=== PATIENT | female | born 1960 | race Caucasian/White ===

== ENCOUNTER 2023-08-18 20:00 | Emergency (ER) | payer OTHER, SELFPAY ==
[2023-08-18 20:07] VITALS: BP 155/98
--- NOTE | 2023-08-18 21:23 | ED.MUSCINJ ---
HPI-Injury
General
Chief Complaint: Musculo-Skeletal Complaint
Source: patient
Exam Limitations: none
Time Seen by Provider: 08/18/23 21:19
Nursing documentation reviewed up to this point in time: agreed with
Travel History
Have you had any contact with someone who has COVID-19?: No
Do you have any symptoms of coronavirus? Fever > 100 degrees, chills, cough, shortness of breath, sore throat, loss of taste or smell, muscle aches, or headache?: No
History of Present Illness-Injury
Initial Injury comments:
62-year-old female with history of lung cancer status post radiation and chemotherapy, now in remission States she slipped w/in past few hours at her daughter's house and injured her right wrist. She denies hitting her head or any other injury.
Past History
Past History
ED Past Medical History: Cancer (Lung cancer)
ED Past Surgical History: None
Social History
Tobacco: Non-smoker
Personal:
Living: with family
Employment: Employed
Review of Systems
Review of Systems
Allergies reviewed?: Yes
All Other Systems: ROS reviewed and negative except as documented in HPI and ROS
Musculoskeletal: Reports other (Right wrist pain and swelling)
Musculoskeletal Injury Exam
Musculoskeletal Injury Exam
Right Wrist:
Pain with Movement?: Moderate
Tender to palpation?: Moderate
Soft tissue swelling?: Mild
External deformity and angulation?: None
Joint instability?: No
Malalignment/deformity?: No
Range of motion: Limited
Distal skin color and temperature: normal-warm & good color
Capillary Refill: normal
Normal distal neurovascular exam?: Yes
Phy Exam
Physical Exam
Physical Exam:
PHYSICAL EXAMINATION:
General: no apparent distress, not acutely ill
Neuro: alert and oriented.
Psychiatric: well kept. interactive and cooperative
Musculoskeletal: Moves with ease
Skin: Warm, pink.
Injury Course
Orders/Labs/Results
Orders:
Orders
08/18/23 20:09
Wrist, Right 3 Views [CR Wrist - Right Min 3 Views] Urgent
Comment:
Reason For Exam: injury and pain
08/18/23 21:25
Volar Right-Treatment ONCE
Procedures
Splint Check
Splint checked by provider?: Yes
Circulation/Movement/Sensation post splint application: brisk cap refill and full sensation
MDM/Problems Addressed
Differential Diagnosis Includes:
Fracture, sprain
MDM/Problems Addressed:
62-year-old female with history of lung cancer status post radiation and chemotherapy, now in remission States she slipped w/in past few hours at her daughter's house and injured her right wrist. She denies hitting her head or any other injury.
X-ray right wrist initially read by this examiner, there is a mildly angulated distal radial fracture.
Volar splint applied
Referred to orthopedics
*Critical Care Note
Total Time (30-74mins, 75-104mins- exclusive of procedures): Not Applicable
ED Attending Note
-
Portions of this chart may have been created with voice recognition software.� Occasional wrong word or��sound alike� substitutions may have occurred due to the inherent limitations of voice recognition software.
Discharge Plan
Departure
Patient Disposition: Home (Routine Discharge)
Date of Disposition: 08/18/23
Time of Disposition: 21:26
Patient with high blood pressure during this ER visit?: Yes
Condition: Good
Discharge Problem:
Fall due to ice or snow, Fracture of right wrist
Instructions: Wrist Fracture (DC), Using Cold for Pain
Prescriptions:
No Action
[id number] serr [Osteo Bi-Flex (5-Loxin)] 1 EACH tablet
1 ea PO DAILY
Referrals:
Toñito Ferguson MD [Active] - Next open appointment
Activity Restrictions/Additional Instructions:
As we discussed, keep the splint on until you see the orthopedic doctor.
Call tomorrow morning for appointment.
Tylenol or ibuprofen as needed for pain.
Interventions
Interventions:
*Risk Screen - Suicide Last Done: 08/18/23 20:07
*General Assessment Last Done: 08/18/23 21:48
*Neglect/Abuse Screening Last Done: 08/18/23 20:07
*Nursing Disposition Last Done: 08/18/23 21:51
ED-Musculoskeletal Assessment Last Done: 08/18/23 21:48
Discharge Date and Time
Discharge Date/Time: 08/18/23 21:52
[2023-08-18 21:48] VITALS: BP 136/89
[2023-08-18 21:51] VITALS: BP 136/89
== END 2023-08-18 21:52 | disposition home or self-care (01) ==
LOC: EMR 20:00
PROVIDERS: EMERGENCY PHYSICIAN Emergency Medicine
DX: S52.571A Other intraarticular fracture of lower end of right radius, initial encounter for closed fracture (principal); W00.0XXA Fall on same level due to ice and snow, initial encounter; Z92.21 Personal history of antineoplastic chemotherapy; Z92.3 Personal history of irradiation
CPT/HCPCS: 99283; 73110

== ENCOUNTER → 2023-10-01 14:28 | Outpatient (REF) | payer OTHER, SELFPAY | LOC: HWRAD 14:28 | PROVIDERS: ATTENDING PHYSICIAN Physician Assistant; FAMILY PHYSICIAN Physician Assistant; REFERRING PHYSICIAN Specialist | DX: C34.90 Malignant neoplasm of unspecified part of unspecified bronchus or lung (principal) | CPT/HCPCS: 71250 ==

== ENCOUNTER → 2023-11-27 12:42 | Outpatient (REF) | payer OTHER, SELFPAY | LOC: HWWDC 12:42 | PROVIDERS: ATTENDING PHYSICIAN Physician Assistant | DX: Z12.31 Encounter for screening mammogram for malignant neoplasm of breast (principal) | CPT/HCPCS: 77063; 77067 ==

== ENCOUNTER 2024-07-25 13:44 | Inpatient (IN) | payer OTHER, SELFPAY ==
[2024-07-25] VITALS (24 sets, daily range): BP systolic 82–130; BP diastolic 55–98
[2024-07-25 11:37] LABS: Mean Corp Hgb Conc. 33.3 g/dL (33.0-37.0); Mean Corpuscular Hgb 28.6 pg (27.0-31.0); Mean Corpuscular Volume 85.7 fL (81.0-99.0); Red Blood Cell Count 1.75 10^6/uL (4.20-5.40); Red Cell Dist. Width 16.7 % (11.5-14.5); White Blood Cell Count 4.2 10^3/uL (4.8-10.8)
[2024-07-25 11:40] LABS: ALT (SGPT) 274 U/L (0-35); AST (SGOT) 216 U/L (14-36); Albumin 3.5 g/dl (3.5-5.0); Alkaline Phosphatase 377 U/L (38-126); Blood Urea Nitrogen 31 mg/dl (7-17); Carbon Dioxide 26 mmol/L (22-30); Chloride 101 mmol/L (98-107); Glucose 127 mg/dl (70-99); Lipase 256 U/L (23-300); Potassium 3.9 mmol/L (3.5-5.1); Sodium 134 mmol/L (135-145); Total Bilirubin 1.6 mg/dl (0.2-1.3); Total Protein 6.2 g/dl (6.3-8.2); eGFR > 60.00
[2024-07-25 12:05] LABS: % Immature Granulocytes 0.9 % (0-0.5); % Lymphocytes 10.8 % (20.5-51.1); % Monocytes 16.5 % (1.7-9.3); % Neutrophils 71.8 % (42.2-75.2); Absolute Lymphocytes 0.5 10^3/uL (1.2-3.4); Absolute Monocytes 0.7 10^3/uL (0.1-0.6); Nucleated Red Blood Cells % 0 %
[2024-07-25 12:06] LABS: Platelet Count 10 10^3/uL (130-400)
--- NOTE | 2024-07-25 12:27 | ED.GENMED ---
History of Present Illness
General
Chief Complaint: Weakness
Source: patient
Time Seen by Provider: 07/25/24 11:55
History of Present Illness
History of Present Illness:
63-year-old female presents to the emergency room complaining of being extremely weak. Patient has a history of lung cancer. She had lung cancer in the right lung which was treated with radiation chemo followed by immunotherapy for 1 year. Right
sided lung cancer seems to be 'cured'. However she developed a separate cancer in the left lung. She did have a mass to her adrenal gland. She received radiation and chemo for this lesion. She is now taking Tagrisso 80 mg. She started this
medication 1 month ago. Patient states she had 'no problems' with chemo. She has never had a blood transfusion. She denies any hematochezia or melena. She denies vomiting any blood or coffee-ground material. Patient has noted some bruising and
in fact had some bruising about the eyes bilaterally which occurred about a week ago or so.
Past History
Past History
ED Past Medical History: Cancer (Lung cancer)
ED Past Surgical History: None
Social History
Tobacco: Non-smoker
Personal:
Living: with family
Employment: Employed
Phy Exam
Physical Exam
Physical Exam:
General: Awake, Alert, Oriented X3. No acute distress, cachectic and chronically ill-appearing.
Vitals: unremarkable
Head: Atraumatic
Eyes: Pupils equal, EOMI
Throat: Airway intact, no exudates
Neck: Trachea midline
Lungs: Clear and equal b/l
Heart: Regular rate, no murmurs
Abd: Soft, Nontender, No pulsatile mass
Rectal: No stool in the rectum.
Neuro: Nonfocal
Skin: Warm, dry, no rash
Extremities: pulses equal b/l, no edema
Course
Orders/Labs/Results
Orders:
Orders
07/25/24 11:19
EKG [Electrocardiogram (*1)] Urgent
Reason for Study: Tachycardia
EKG- Treatment ONCE
07/25/24 11:22
Complete Blood Count/With Diff Urgent
Comprehensive Metabolic Panel Urgent
Lipase Urgent
07/25/24 12:25
Blood Bank Products [* Blood Bank Products] Urgent
Blood Bank Products: *Packed RBC Leuko(PRBC's)
Quantity: 2
Transfuse Today: Yes
Reason: Anemia
07/25/24 12:26
Blood Bank Products [* Blood Bank Products] Urgent
Blood Bank Products: *Plt Single Donor Leuko
Quantity: 1
Transfuse Today: Yes
Reason: Thrombocytopenia
07/25/24 12:34
Type+Screen Urgent
07/25/24 12:47
ABO2 Urgent
BBK Wristband Number:
Associate notified that ABO2 has been ordered: [id number]
Date: 07/25/24
Time: 12:41
Environmental Monitoring Specialist ID: [id number]
07/25/24 13:27
Admit/Transfer Patient As Directed
Co-Sign Provider:
Level of Care: Inpatient admission
Assign to:: IMU- Intermediate Care
Physician / Group: annalee del cid
Diagnosis: sym anemia, thrombocytopenia, acute transaminitis, NSC on immuno
Reason for Hospitalization: sym anemia, thrombocytopenia, acute transaminitis, NSC on immuno
Expected length of stay greater than two midnights?: Yes
ELOS- Estimated Length of Stay in days: 5
I certify the patient meets the requirements for IP care: Yes
Code Status As Directed
Resuscitation Status: Do not resuscitate
Reached after discussion with pt or family/Healthcare POA: Yes
Based on pt advanced directive or healthcare POA form: Yes
Decision communicated with: Per patient with daughter Sharon present at bedside
HEMATOLOGY CONSULT Routine
Consulting Provider: Jovon Yañez
Was physician already notified: Yes
Reason for consult: Anemia, thrombocytopenia secondary Tagrisso
DNR Bracelet Application ONCE
07/25/24 13:30
PRN Pain Medication Management As Directed
May give lesser potent ordered pain med per pt: Yes
preference::
Protocol:: Medication orders for pain may be administered in a
manner that supports deferring to patient preference
when the pt is:
- Requesting an ordered lesser potent pain medication.
Least to most potent pain medications are defined
as: acetaminophen < NSAID < tramadol < opioids
(morphine, oxycodone, hydromorphone).
- Requesting a lesser dose of the same medication IF
ORDERED.
- Requesting a less intrusive route of administration
if both routes are prescribed by the provider (PO <
IV).
Abnormal Lab Results
07/25/24 07/25/24
11:22 12:34
WBC 4.2 L 10^3/uL
(4.8-10.8)
RBC 1.75 L 10^6/uL
(4.20-5.40)
Hgb 5.0 L* g/dL
(12.0-16.0)
Hct 15.0 L* %
(37.0-47.0)
RDW 16.7 H %
(11.5-14.5)
Plt Count 10 L* 10^3/uL
(130-400)
Absolute Lymphs (auto) 0.5 L 10^3/uL
(1.2-3.4)
Absolute Monos (auto) 0.7 H 10^3/uL
(0.1-0.6)
Immature Gran % 0.9 H %
(0-0.5)
Lymphocytes % 10.8 L %
(20.5-51.1)
Monocytes % 16.5 H %
(1.7-9.3)
Sodium 134 L mmol/L
(135-145)
BUN 31 H mg/dl
(7-17)
Glucose 127 H mg/dl
(70-99)
Total Bilirubin 1.6 H mg/dl
(0.2-1.3)
AST 216 H U/L
(14-36)
ALT 274 H U/L
(0-35)
Alkaline Phosphatase 377 H U/L
(38-126)
Total Protein 6.2 L g/dl
(6.3-8.2)
Crossmatch IS Only See Detail
07/25/24 11:22
07/25/24 11:22
Vital Signs
Initial and Last Documented VS:
Initial Vital Signs
Temp Pulse Resp BP Pulse Ox
98.2 F 114 18 104/71 100
07/25/24 11:12 07/25/24 11:12 07/25/24 11:12 07/25/24 11:12 07/25/24 11:12
Last Documented Vital Signs
Temp Pulse Resp BP Pulse Ox
98.3 F 99 18 112/82 98
07/25/24 14:11 07/25/24 14:11 07/25/24 14:11 07/25/24 14:11 07/25/24 14:11
MDM/Problems Addressed
Differential Diagnosis Includes:
Anemia from blood loss, anemia from iron deficiency, anemia from bone marrow suppression, thrombocytopenia from bone marrow suppression, aplastic anemia
MDM/Problems Addressed:
Patient presents with profound weakness shortness of breath with exertion. She is noted to have significant anemia on testing. Will transfuse 2 units of packed red blood cells. Patient also has significant thrombocytopenia. She has periorbital
bruising bilaterally as well as some skin bruising. It does not appear that she has any active bleeding through the GI tract. No large hematomas. Discussed patient's presentation with Dr. Yañez who is on-call for hematology/oncology. He
recommends 2 units of packed red blood cells and 1 unit of platelets. Discontinue medication.
Chronic conditions affecting care: Cancer (Lung cancer)
*Pulse Oximetry
Patient hypoxic: no
*EKG
Interpreted by ED Provider?: Yes
Interpretation: abnormal
Heart Rate: 102
Rate: tachycardiac
Rhythm: sinus tachycardia
Taberg: normal axis
Interval: normal interval
QRS Pattern: normal QRS
*Operations Management Trainee Interpretation
Rate: tachycardiac
Interpretation: abnormal
Rhythm: sinus tachycardia
*Critical Care Note
Total Time (30-74mins, 75-104mins- exclusive of procedures): Not Applicable
Patient Management
Social determinants of health affecting care: Strong social support
ED Attending Note
-
Portions of this chart may have been created with voice recognition software.� Occasional wrong word or��sound alike� substitutions may have occurred due to the inherent limitations of voice recognition software.
Discharge Plan
Departure
Patient Disposition: Admit
Date of Disposition: 07/25/24
Time of Disposition: 12:36
Presentation/result/management discussed w/ accepting MD/DO: Hospitalist
Condition: Fair
Discharge Problem:
Symptomatic anemia, Thrombocytopenia
Interventions
Interventions:
*Risk Screen - Suicide Last Done: 07/25/24 11:12
*General Assessment Last Done: 07/25/24 11:12
*Neglect/Abuse Screening Last Done: 07/25/24 12:56
*ED COVID-19 Vaccine History Last Done: 07/25/24 11:12
ED- Cardiac Assessment Last Done: 07/25/24 12:25
ED- Neurological Assessment Last Done: 07/25/24 12:25
ED- Pulmonary Assessment Last Done: 07/25/24 12:25
--- NOTE | 2024-07-25 12:49 | HPS.HSE ---
Family Physician
-
Family Physician: NOT KNOW UNKNOWN - PT DOES
Chief Complaint
-
Weakness x 1 week
History of Present Illness
63-year-old female complaining of weakness for the past week. She has history of non-small cell lung CA Dx September 2019 chemo/radiation/Keytruda x 1 year, mets to left upper lung and adrenal gland September 2023 was started on chemo September to February .
Then started Tagrisso 80 mg May 2024. She started this medication approximately 1 month ago with no issues. She had prior lung cancer to her right side which was in remission after radiation chemo and immunotherapy for 1 year. She reports
never receiving any blood transfusions or platelets. She denies any fever, chills, chest pain, palpitations, cough, shortness of breath, abdominal pain, nausea, vomiting, blood in stool or urine, diarrhea. She has past medical history of non-small
cell lung CA right lung Dx July 2019 status post chemo, radiation, Keytruda x 1 year. Left side lung increased nodule growth July 2023 via PET scan started chemo September finished in February is now on current Tagrisso once a month, former smoker
quit 2016,Emphysema noted August 2019
Medical History
Past Medical History
Past Medical History: Reports Other
Additional Past Medical History:
non-small cell lung CA right lung Dx July 2019 status post chemo, radiation, Keytruda x 1 year.
Left upper lung increased nodule growth and adrenal gland SEPTEMBER 2023 via PET scan started chemo September finished in February is now on current Tagrisso once a month
former smoker 25 years 6 cigarettes a day quit 2015
Past Surgical History: Reports Other
Additional Past Surgical History:
Right femur repair 1997
Right wrist repair radius fracture 2022
section x 2
ear growths benign surgery
Radiation lung for non-small cell lung CA
Social History
Tobacco: Former Smoker ( former smoker 25 years 6 cigarettes a day quit 2015)
Alcohol: None
Drug: None
Personal: Single
Living: Alone (Own home with main floor no steps)
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
Family History
Family History: Other (Older sister age 66 breast cancer living, younger sister age 64 non-small cell lung CA)
Allergies / Home Medications
Allergies reflects when Allergies were last updated in [employer].
Home Medications with original date entered in [employer]
Allergy/Medication List:
Allergies
Allergy/AdvReac Type Severity Reaction Status Date / Time
fosaprepitant Allergy dizziness, Verified 07/25/24 11:18
[From Emend (fosaprepitant)] shortness
of breath
pseudoephedrine Allergy Hives Verified 07/25/24 11:17
[From Sudafed]
Home Medications
olanzapine 5 mg tablet 5 mg PO DAILYPRN PRN nausea 07/25/24
osimertinib 80 mg tablet (Tagrisso) 80 mg PO DAILY 07/25/24
sennosides 8.6 mg tablet (senna) 8.6 mg PO HSPRN PRN constipation 07/25/24
Review of Systems
-
History Source: Patient and Family (Daughter Sharon at bedside)
A 12 point ROS was completed and negative except as noted: Yes
Constitutional: Reports Fatigue; Denies Fever, Weight Loss or Chills
EENT: Denies Sore Throat, Mouth Pain or Runny Nose
Respiratory: Denies Cough or Trouble Breathing
Cardiac: Denies Chest Pain, Diaphoresis, Palpitations or Syncope
Abdomen/GI: Denies Abdominal Pain, Nausea, Vomiting, Diarrhea, Constipated, Bloody Stools or Black Stools
: Denies Dysuria, Frequency, Flank Pain, Incontinence, Difficulty Voiding or Urgency
Musculoskeletal: Denies Joint Pain, Joint Swelling or Edema
Skin: Denies Itching or Rash
Neurological: Reports Weakness (Generalized); Denies Dizzy or Headache
Endocrine: Reports No Symptoms
Hematologic/Lymphatic: Reports No Symptoms
Psych: Reports Calm
Physical Exam
Vital Signs
Vital Signs
Temp Pulse Resp BP Pulse Ox
98.2 F 114 18 104/71 100
07/25/24 11:12 07/25/24 11:12 07/25/24 11:12 07/25/24 11:12 07/25/24 11:12
Physical Exam
General: Comfortable, Conversant and Cachectic
HEENT: NormoCephalic, Anicteric, Moist mucous membranes, PERRLA and [place] Conjunctivae
Respiratory: Clear; No Wheezes, Rales, Rhonchi or Crackles
Cardiac: S1/S2 and Tachycardia (Sinus tachycardia); No Murmur, Rub, Gallop, Peripheral Edema or Calf Tenderness
Breast: Deferred by me
GI: Soft, Non Tender, Non Distended, Normal Bowel Sounds and No Hepatosplenomegaly
Rectal: Deferred by Provider
Genito-urinary: Deferred by me
Musculoskeletal: No Clubbing, No Cyanosis and No Edema
Skin: Warm and Dry; No Rash or Jaundice
Neuro: AO x 3, No Motor Deficits, Nonfocal/grossly intact and Cranial Nerves Intact; No Slurred Speech, Facial Droop, Tremors or Sedated
Psych: Calm
Laboratory Results
-
07/25/24 11:22
07/25/24 11:22
Laboratory Results
Total Bilirubin 1.6 mg/dl (0.2-1.3) H 07/25/24 11:22
AST 216 U/L (14-36) H 07/25/24 11:22
ALT 274 U/L (0-35) H 07/25/24 11:22
Alkaline Phosphatase 377 U/L (38-126) H 07/25/24 11:22
Lipase 256 U/L (23-300) 07/25/24 11:22
Data Reviewed
-
Lab Data: Labs Reviewed by me
Impression/Plan
-
Impression/plan:
Admit to IMU
#Acute anemia/thrombocytopenia/low RBCs likely 2/2 immunotherapy agent Tagrisso
Hgb 5, PLT 10, RBC 1.75
-Type and screen, blood consent obtained by ER physician
-Transfuse 2 units PRBC
-Transfuse 1 bag platelets
-Fall precautions
-Hold Tagrisso
-Consult Hematology-Dr. Daniel manzano
-Follow CBC, CMP
EKG sinus tach 102 bpm, QTc 417 MS otherwise normal
#NON SMALL CELL LUNG CA Dx July 2019 chemo, radiation, Keytruda x 1 year METS ABRIL
July 2019 chemo, radiation, Keytruda x 1 year (patient had port but wanted it removed due to pain)
-Chemo again September 2023February 2024
-Hold Tagrisso
-Patient takes Zyprexa 5 mg daily as needed for nausea
-
CT chest 10/01/2023: cystic and solid opacity within the outer aspect of the left upper lobe containing several peripheral nodular densities which measure up to 6.3 mm
Total size of this lesion is 2.3 cm
#Acute transaminitis concern for possible liver mets
-Check CT abdomen pelvis
#Hypotension secondary to anemia
BP 104/71
Monitor blood pressure
Patient will be receiving 2 units of blood
#Former smoker 25 years 6 cigarettes a day stopped 2015
#Emphysema noted August 2019
#Cachexia with protein malnutrition
Consult dietary add supplemental Ensure 3 times daily
DVT prophylaxis
Hold due to platelets of 10
DNR per patient with daughter Sharon present at bedside
--- NOTE | 2024-07-25 13:55 | W.PN.UPDATE ---
Update Note
Progress Note Update
This is an addendum to the H&P written by Cassy Mcbride on 07/25/2024. Patient seen and examined independently with VISITOR SERVICE ASSISTANT.
63-year-old female past medical history of small cell lung cancer diagnosed in September 2019 status post chemo/radiation/Keytruda for 1 year with metastases to left upper lung and adrenal gland in September 2023. She recently completed chemotherapy end of
February. She was started on Targrisso a month ago.
Presenting with fatigue and weakness. No focal symptoms of infection. Labs show severe pancytopenia with white cell count of 4.2, hemoglobin of 5, platelets of 10. Not neutropenic. Labs also transaminitis.
Concern for pancytopenia secondary to Tagrisso. Hold Tagrisso. 2 units of blood transfusion, 1 unit platelets transfusion as recommended by oncology. Check CT abdomen pelvis to evaluate transaminitis which is likely from Tagrisso.
--- NOTE | 2024-07-25 14:38 | PTCARENOTE ---
Pt arrive to floor on stretcher from ED, daughter at bedside. Ambulated to bathroom and bed with steady gait, denied dizziness/lightheadedness. Blood transfusing into RAC; AAO x 3; Denies pain; NSR on monitor; Skin C/D/I; Lungs CTA; Oriented to
room, call orantes within reach. Will continue to monitor and assess.
[2024-07-25] MEDS: MIRALAX PO (20:23)
[2024-07-25] MEDS: SENOKOT-S 1 TABLET PO (20:23)
[2024-07-26] VITALS (16 sets, daily range): BP systolic 83–112; BP diastolic 57–79; PULSE 64–85; O2SAT 100
[2024-07-26] MEDS: NSS 500 IV (05:00)
[2024-07-26 05:19] LABS: ALT (SGPT) 191 U/L (0-35); AST (SGOT) 147 U/L (14-36); Albumin 2.8 g/dl (3.5-5.0); Alkaline Phosphatase 292 U/L (38-126); Blood Urea Nitrogen 19 mg/dl (7-17); Calcium 8.4 mg/dl (8.4-10.2); Carbon Dioxide 22 mmol/L (22-30); Chloride 104 mmol/L (98-107); Glucose 95 mg/dl (70-99); Potassium 3.6 mmol/L (3.5-5.1); Sodium 134 mmol/L (135-145); Total Bilirubin 1.4 mg/dl (0.2-1.3); Total Protein 5.4 g/dl (6.3-8.2); eGFR > 60.00
[2024-07-26 05:24] LABS: Hematocrit 21.4 % (37.0-47.0); Hemoglobin 7.4 g/dL (12.0-16.0); Mean Corp Hgb Conc. 34.6 g/dL (33.0-37.0); Mean Corpuscular Hgb 29.4 pg (27.0-31.0); Mean Corpuscular Volume 84.9 fL (81.0-99.0); Platelet Count 18 10^3/uL (130-400); Red Blood Cell Count 2.52 10^6/uL (4.20-5.40); Red Cell Dist. Width 15.1 % (11.5-14.5); White Blood Cell Count 2.6 10^3/uL (4.8-10.8)
--- NOTE | 2024-07-26 05:47 | CON.ONC ---
Impression
Impression
Severe pancytopenia secondary to osimertinib
Metastatic non-small cell lung cancer
Plan
Plan
Specifics of her lung cancer not known although based on her history she says she mostly has pulmonary metastasis and presumably based on her treatment is EGFR positive.
Osimertinib has been shown to occasionally cause severe cytopenias.
Agree with supportive care with transfusions and holding osimertinib for now.
Hgb and PLT are improved following transfusion. White blood count is lower. ANC = 3.0 yesterday. Today's differential is pending. Typically we do not give G-CSF in this situation.
Monitor CBC another day. Typically a bone marrow biopsy may be considered although our hospital policy is to try to avoid inpatient bone marrow biopsy and I think we can assuming her counts stabilized.
In the literature, see below, it may be appropriate to resume osimertinib at a lower dose in the future. I will let Dr. Moore decide whether that is what should be done as we do not have any of her outpatient records.
Pancytopenia During Osimertinib Treatment in a Patient with EGFR-Mutated Non-Small Cell Lung Cancer
Bjorn Mireles 1, Ilana Osorioo1, Alexandra Petersona1, Anitha Riverso1, Travis Alfordo2, Simeon Choa1, Christiano Richards3, Abdoul Betancourt 4,Tad Fried 3 1Clinical Oncology Unit, [facility],
[place]; 2Department of Pharmacy, [facility]; 3Department of [employer]ative Technologies in Medicine and Dentistry, [facility]; 4Department of Medical, Oral and Biotechnological
Sciences, [facility] Correspondence: Bjorn Mireles, Clinical Oncology Unit, [facility], [address], [facility], [address], [place], Tel [phone], Fax [phone], Email
[email or web address]
Background: Osimertinib is an irreversible tyrosine kinase inhibitor approved for the treatment of metastatic epidermal growth factor receptor (EGFR)-mutated non-small cell lung cancer (NSCLC). In clinical trials, osimertinib has exhibited excellent
activity and less toxicity compared to gefitinib, erlotinib and standard chemotherapy. Case Presentation: Herein, we describe the case of a 68-year-old man who received first-line osimertinib for metastatic EGFRmutated NSCLC. Suspected
osimertinib-induced pancytopenia together with a partial treatment response was assessed after 10 days of therapy. Osimertinib was resumed at 40 mg daily a month later while the patient exhibited durable stable disease. No other adverse events
occurred. Conclusion: In the current case, first-line treatment with osimertinib at 80 mg daily in a patient with EGFR-mutated NSCLC resulted in severe pancytopenia and a rapid treatment response. Dose reduction to 40 mg daily resulted in excellent
activity without any further adverse events. Osimertinib could be safely resumed at a reduced dose even after pancytopenia.
https://pmc.ncbi.nlm.nih.gov/articles/HKC1902206/pdf/[email or web address]
Patient History
History of Present Illness
Patient is a 63-year-old female who follows with Dr. Mauro Moore at [facility]. The specifics of her cancer are unknown but she denies known history of bone or bone marrow disease or intra-abdominal disease. She was recently started on
osimertinib (Tagrisso) 80 mg daily in late May. She presented with weakness, change in smells, nausea and vomiting, dry mouth, unusual smells, and weakness. She collapsed secondary to weakness. In the emergency room she was noted to be
severely anemic with Hgb = 5 and thrombocytopenia with PLT = 10,000. She was transfused 2 units of PRBCs and 1 unit of platelets. Only bleeding was some bruising around her eyes. No chest pain or shortness of breath. Following transfusion she is
feeling improved.
Patient Medication
�Medication �Instructions �Recorded �Confirmed �Last Taken �Type
olanzapine 5 mg tablet 5 mg PO DAILYPRN PRN nausea 07/25/24 07/25/24 07/23/24 History
osimertinib 80 mg tablet (Tagrisso) 80 mg PO DAILY 07/25/24 07/25/24 07/25/24 History
sennosides 8.6 mg tablet (senna) 8.6 mg PO HSPRN PRN constipation 07/25/24 07/25/24 07/24/24 History
Active Medications
Generic Name Dose Route Start Last Admin
Trade Name Freq PRN Reason Stop Dose Admin
Acetaminophen 650 mg 07/25/24 14:29
Acetaminophen 325 Mg Tablet PO 08/22/24 14:28
Q4HPRN PRN
mild pain/RICHTER/temp> 100.4F
Sodium Chloride 500 mls @ 125 mls/hr 07/26/24 04:28 07/26/24 05:00
Nss IV 07/26/24 08:27 500 mls
BOLUS ONE Administration
Ondansetron HCl 4 mg 07/25/24 14:29
Ondansetron 4 Mg/2 Ml Vial IV 08/22/24 14:28
Q6HPRN PRN
nausea and vomiting
Polyethylene Glycol 17 grams 07/25/24 18:00 07/25/24 20:23
Polyethylene Glycol Powder 17 Grams Packet PO 08/22/24 17:59 Not Given
DAILY MARTIN
Senna/Docusate Sodium 1 tablet 07/25/24 20:00 07/25/24 20:23
Docusate W/Senna (Mila-Colace) Tablet PO 08/22/24 19:59 1 tablet
BID MARTIN Administration
Sodium Chloride 0 flush 07/25/24 15:00
Sodium Chloride 0.9% (Flush) Syringe IV 08/22/24 14:59
PER PROTOCOL MARTIN
Physical Exam
-
General: Well Developed, Well Nourished, No Apparent Distress and Comfortable; Negative Respiratory Distress
Cardiology: S1 and S2
Pulmonary: Clear
GI: Soft
Extremities: No C/C/E
Labs
Lab Results
WBC 2.6 10^3/uL (4.8-10.8) L 07/26/24 04:19
RBC 2.52 10^6/uL (4.20-5.40) L 07/26/24 04:19
Hgb 7.4 g/dL (12.0-16.0) L D 07/26/24 04:19
Hct 21.4 % (37.0-47.0) L 07/26/24 04:19
MCV 84.9 fL (81.0-99.0) 07/26/24 04:19
MCH 29.4 pg (27.0-31.0) 07/26/24 04:19
MCHC 34.6 g/dL (33.0-37.0) 07/26/24 04:19
RDW 15.1 % (11.5-14.5) H 07/26/24 04:19
Plt Count 18 10^3/uL (130-400) L* D 07/26/24 04:19
MPV Not Reportable 07/26/24 04:19
Abs Immat Gran (auto) 0.0 10^3/uL (0-0.05) 07/25/24 11:22
Absolute Neuts (auto) 3.0 10^3/uL (1.4-6.5) 07/25/24 11:22
Absolute Lymphs (auto) 0.5 10^3/uL (1.2-3.4) L 07/25/24 11:22
Absolute Monos (auto) 0.7 10^3/uL (0.1-0.6) H 07/25/24 11:22
Absolute Eos (auto) 0.0 10^3/uL (0-0.7) 07/25/24 11:22
Absolute Basos (auto) 0.0 10^3/uL (0-0.2) 07/25/24 11:22
Immature Gran % 0.9 % (0-0.5) H 07/25/24 11:22
Neutrophils % 71.8 % (42.2-75.2) 07/25/24 11:22
Lymphocytes % 10.8 % (20.5-51.1) L 07/25/24 11:22
Monocytes % 16.5 % (1.7-9.3) H 07/25/24 11:22
Eosinophils % 0.0 % (0-6) 07/25/24 11:22
Basophils % 0.0 % (0-2) 07/25/24 11:22
Creatinine 0.4 mg/dL (0.6-1.0) L 07/26/24 04:19
Laboratory Tests
07/25/24
11:22
WBC 4.2 L
Hgb 5.0 L*
Hct 15.0 L*
Plt Count 10 L*
Vital Signs
Vital Signs
Temp Pulse Resp BP Pulse Ox
98 F 62 17 86/57 98
07/26/24 03:00 07/26/24 04:19 07/26/24 04:19 07/26/24 04:19 07/26/24 04:19
--- NOTE | 2024-07-26 07:06 | PTCARENOTE ---
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 500ml bolus ordered and given. Pt asymptomatic except feeling shakey. All other assessment benign, no changes. pt oob to bathroom. No pain. Call orantes in reach.
[2024-07-26 08:30] LABS: Band Neutrophils 2 % (0-3); Lymphocytes 8 % (20-51); Monocytes 15 % (2-9); Segmented Neutrophils 75 % (42-75)
[2024-07-26 08:31] LABS: Hypochromasia 1+; Microcytosis 1+; Total Cells Counted 100
[2024-07-26 08:37] LABS: Normal RBC Morphology No; Platelets Checked Yes
[2024-07-26] MEDS: MIRALAX PO (08:39)
[2024-07-26] MEDS: SENOKOT-S 1 TABLET PO ×2 (08:39→22:01)
--- NOTE | 2024-07-26 08:48 | W.PN.HOSP.TC ---
Today's Communication/Plan
-
see bold
Assessment / Plan
Assessment / Plan
Gen: NAD, AAOx3, appears chronically ill and malnourished
Eyes: EOMI, PERRLA, no scleral icterus.
Neck: supple.
CV: RRR, +S1/S2, no m/r/g.
Resp: CTAB anteriorly, no rales, wheezes, or rhonchi.
Abd: +BS, soft, NT, ND
Skin: No rashes.
Neuro: CN 2-12 intact, non-focal.
Psych: Normal mood and affect.
CT A/P: There is mild periportal edema which can be seen with acute hepatic injury. No suspicious hepatic lesions. Moderate colonic stool burden without evidence of bowel obstruction. Multiple calcified uterine fibroids.
Acute pancytopenia:
-likely due Osimertinib which has been held
-s/p 2U pRBCs and 1U plts
-appreciate ONC, no G-CSF, possible outpt BMBx
-follow CBC w/diff
-follow ANC. Last ANC 900, afebrile.
NSCLC:
-s/p XRT/chemo
-CT A/P without evidence of mets
Elevated LFTs:
-CT A/P above and notable for possible acute hepatic injury
-Trend LFTs (currently downtrending)
Hypotension:
-Pt reports she is not hypotensive at baseline
-at the time of my exam, SBP 103, pt asymptomatic
-start IVFs as pt reports poor PO intake
-check echo
Other problems:
COPD, not in acute exac
Cachexia
DNR, no DVT proph with plts 18
Total time spent on today's encounter was 50 minutes which included time spent in counseling the patient/family regarding diagnosis and treatment plan as listed above, goals of care, and symptom management. Case was discussed with nursing staff,
specialists, and care coordinators/case management. All labs and imaging personally reviewed by me. Remainder the time spent in detailed review of previous records, lab data, imaging, and other medical provider documentation.
Anticipated Discharge: 24 - 48 hours
Subjective/Interval History
-
Date of Service: July 26, 2024
Objective Data
-
Labs:
Laboratory Results
07/26/24
04:19
WBC 2.6 L
Hgb 7.4 L D
Hct 21.4 L
Plt Count 18 L* D
Sodium 134 L
Potassium 3.6
Chloride 104
Carbon Dioxide 22
BUN 19 H
Creatinine 0.4 L
Glucose 95
Calcium 8.4
Total Bilirubin 1.4 H
AST 147 H
ALT 191 H
Alkaline Phosphatase 292 H
Vital Signs:
Vital Signs
Temp Pulse Resp BP Pulse Ox
97.8 F 65 15 90/62 97
07/26/24 07:40 07/26/24 06:00 07/26/24 06:00 07/26/24 06:00 07/26/24 06:00
I&O
07/25/24 07/26/24 07/27/24
06:59 06:59 06:59
Intake Total 2470 / 2470
Balance 2470 / 2470
[2024-07-26] MEDS: D5/0.9% SODIUM CHLORIDE 1000 IV ×2 (10:33→22:01)
[2024-07-26] MEDS: ZOFRAN 4 MG IV (15:33)
--- NOTE | 2024-07-26 16:00 | CM ---
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
given .
No adaptive devices
Never had VN/SNF
Pharmacy [facility]
PCP Dr Brianne Fontanez
PLAN Home no needs
[2024-07-26] MEDS: ZOFRAN IV (22:26)
[2024-07-27] VITALS (16 sets, daily range): BP systolic 81–112; BP diastolic 54–85
[2024-07-27] MEDS: NSS 500 IV (02:54)
[2024-07-27 03:00] LABS: Hematocrit 21.2 % (37.0-47.0); Hemoglobin 7.2 g/dL (12.0-16.0); Mean Corpuscular Hgb 29.5 pg (27.0-31.0); Mean Corpuscular Volume 86.9 fL (81.0-99.0); Platelet Count 20 10^3/uL (130-400); Red Blood Cell Count 2.44 10^6/uL (4.20-5.40); Red Cell Dist. Width 15.9 % (11.5-14.5)
--- NOTE | 2024-07-27 03:00 | PTCARENOTE ---
Pt drowsy and c/o weakness and feels 'shaky'. BP 87/61, hr 90s. D5 1/2 NS infusing @ 100mL/hr. Notified JACQUI Webb. Labs and 500 mL bolus Rx'd.
[2024-07-27] MEDS: ZOFRAN 4 MG IV ×2 (03:04→13:20)
[2024-07-27 03:09] LABS: Blood Urea Nitrogen 13 mg/dl (7-17); Calcium 8.4 mg/dl (8.4-10.2); Carbon Dioxide 22 mmol/L (22-30); Chloride 109 mmol/L (98-107); Glucose 98 mg/dl (70-99); Potassium 3.6 mmol/L (3.5-5.1); Sodium 137 mmol/L (135-145); eGFR > 60.00
--- NOTE | 2024-07-27 03:30 | PTCARENOTE ---
Pt drowsy and c/o weakness and shakiness. BP 87/61, hr 90s. D5 1/2 NS infusing @ 100mL/hr. Notified JACQUI Webb. Labs and 500 mL bolus Rx'd.
[2024-07-27 06:14] LABS: Hemoglobin 7.1 g/dL (12.0-16.0); Mean Corp Hgb Conc. 33.8 g/dL (33.0-37.0); Mean Corpuscular Hgb 29.7 pg (27.0-31.0); Mean Corpuscular Volume 87.9 fL (81.0-99.0); Platelet Count 15 10^3/uL (130-400); Red Blood Cell Count 2.39 10^6/uL (4.20-5.40); Red Cell Dist. Width 15.9 % (11.5-14.5); White Blood Cell Count 1.9 10^3/uL (4.8-10.8)
[2024-07-27 06:20] LABS: ALT (SGPT) 168 U/L (0-35); AST (SGOT) 132 U/L (14-36); Albumin 2.5 g/dl (3.5-5.0); Alkaline Phosphatase 268 U/L (38-126); Blood Urea Nitrogen 11 mg/dl (7-17); Calcium 8.2 mg/dl (8.4-10.2); Carbon Dioxide 22 mmol/L (22-30); Chloride 108 mmol/L (98-107); Glucose 100 mg/dl (70-99); Potassium 3.7 mmol/L (3.5-5.1); Sodium 136 mmol/L (135-145); Total Protein 5.1 g/dl (6.3-8.2); eGFR > 60.00
[2024-07-27 08:10] LABS: Absolute Neutrophils -Man Diff 1.3 10^3/uL (1.4-6.5); Band Neutrophils 1 % (0-3); Eosinophils 1 % (0-6); Lymphocytes 11 % (20-51); Monocytes 14 % (2-9); Myelocytes 1 % (-); Segmented Neutrophils 71 % (42-75)
[2024-07-27 08:11] LABS: Anisocytosis 1+; Platelets Checked Yes; Total Cells Counted 100
[2024-07-27 08:12] LABS: Hypochromasia 1+; Normal RBC Morphology No
--- NOTE | 2024-07-27 08:39 | W.PN.ONC2 ---
Today's Communication / Plan
-
Transfuse Hgb <7 or as needed for sxs anemia
Transfuse platelets <15, <20 if febrile, <50 if bleeding
avoid nsaids, anticoagulation, and antiplatelet with platelet count <50
check DIC panel
awaiting return call from Dr. Moore's team
Impression
Impression
Severe pancytopenia. ANC 1300, Hgb 7.1g/dL, platelets 15,000. s/p 2units PRBC, 1unit SDP during hospitalization
hx non-small cell lung CA right lung Dx July 2019 status post chemo, radiation, Keytruda x 1 year
Recurrent Metastatic non-small cell lung cancer presumably based on her treatment is EGFR positive on osimertinib
transaminitis -improving, CT ab/pelvis showed mild periportal edema which can be seen with acute hepatic injury. No suspicious hepatic lesions
constipation
Plan
Plan
Awaiting return call from Dr. Moore to determine the specifics of her lung cancer presumably based on her treatment is EGFR positive.
Osimertinib has been shown to occasionally cause severe cytopenias- hold osimertinib for now -resumption/dose reductions to be determined by primary oncologist in OP follow up
Transfuse prn
Hold off on G-CSF unless hemodynamically unstable
Consider OP BMBx in OP follow up with primary oncologist
Subjective/Objective
Subjective
hypotensive, no hypoxia, afebrile
nausea improved with ondansetron
using senna for constipation, upgraded bowel regimen due to persistent constipation this morning.
ambulating
Vital Signs:
Vital Signs
Temp Pulse Resp BP Pulse Ox
98.2 F 53 12 85/54 98
07/27/24 07:48 07/27/24 06:00 07/27/24 06:00 07/27/24 06:00 07/27/24 02:30
Lab Results:
Laboratory Data
WBC 1.9 10^3/uL (4.8-10.8) L* 07/27/24 05:42
Hgb 7.1 g/dL (12.0-16.0) L 07/27/24 05:42
Plt Count 15 10^3/uL (130-400) L* D 07/27/24 05:42
eGFR > 60.00 07/27/24 05:42
Physical Exam
General: Well Developed, Well Nourished, No Apparent Distress and Comfortable; Negative Respiratory Distress
Cardiology: S1 and S2
Pulmonary: Clear
GI: Soft
Extremities: No C/C/E
[2024-07-27] MEDS: SENOKOT-S 1 TABLET PO ×2 (09:02→19:56)
[2024-07-27] MEDS: MIRALAX 17 GRAMS PO (09:02)
[2024-07-27] MEDS: D5/0.9% SODIUM CHLORIDE 1000 IV ×2 (09:05→18:20)
--- NOTE | 2024-07-27 09:28 | W.PN.HOSP.TC ---
Today's Communication/Plan
-
Check CBC at 6 pm, may need transfusion if numbers worse than this morning's.
Assessment / Plan
Assessment / Plan
63 woman who comes in with fatigue after chemo for NSCLC, found to have significant mahmood-cytopenia
CT A/P: There is mild periportal edema which can be seen with acute hepatic injury.
No suspicious hepatic lesions.
Moderate colonic stool burden without evidence of bowel obstruction.
Multiple calcified uterine fibroids.
1. Acute pancytopenia: continues
-likely due Osimertinib which has been held
-s/p 2U pRBCs and 1U plts, numbers worse this am
-appreciate ONC, no G-CSF, possible outpt BMBx
-follow CBC w/diff
-follow ANC, afebrile.
-Check blood work this pm.
IF H/H < 7/21 -> give 2 units PRBC
IF PLT < 10 -> give 1 unit PLT
2. NSCLC: -s/p XRT/chemo
-CT A/P without evidence of mets
-Outpatient management
3. Elevated LFTs: -CT A/P above and notable for possible acute hepatic injury
-Trend LFTs (currently downtrending)
4. Hypotension: -Pt reports she is not hypotensive at baseline
-She does not feel faint when she stands
-continue IVFs until PO intake resumes to normal
-echo pending
5. Other problems:
COPD, not in acute exac
Cachexia
DNR, no DVT proph with plts <20
Total time spent on today's encounter was 50 minutes which included time spent in counseling the patient/family regarding diagnosis and treatment plan as listed above, goals of care, and symptom management. Case was discussed with nursing staff,
specialists, and care coordinators/case management. All labs and imaging personally reviewed by me. Remainder the time spent in detailed review of previous records, lab data, imaging, and other medical provider documentation.
Anticipated Discharge: > 48 hours
Subjective/Interval History
-
Date of Service: July 27, 2024
Feels better than at admit. Eating ok.
Objective Data
-
Labs:
Laboratory Results
07/27/24 07/27/24 07/27/24
02:43 05:42 08:57
WBC 2.0 L* 1.9 L*
Hgb 7.2 L 7.1 L
Hct 21.2 L 21.0 L
Plt Count 20 L* 15 L* D
PT Pending
INR Pending
APTT Pending
Sodium 137 136
Potassium 3.6 3.7
Chloride 109 H 108 H
Carbon Dioxide 22 22
BUN 13 11
Creatinine 0.5 L 0.5 L
Glucose 98 100 H
Calcium 8.4 8.2 L
Total Bilirubin 1.0
AST 132 H
ALT 168 H
Alkaline Phosphatase 268 H
Vital Signs:
Vital Signs
Temp Pulse Resp BP Pulse Ox
98.2 F 53 12 85/54 98
07/27/24 07:48 07/27/24 06:00 07/27/24 06:00 07/27/24 06:00 07/27/24 02:30
I&O
07/26/24 07/27/24 07/28/24
06:59 06:59 06:59
Intake Total 2470 / 2470 740 / 740
Balance 2470 / 2470 740 / 740
Review of Systems
-
History Source: Patient
All other systems: Reviewed and negative
Physical Exam
-
General: Well Developed, Well Nourished, No Apparent Distress, Comfortable and Conversant
HEENT: Normocephalic, Atraumatic, Moist Mucous Membranes, Nose Appears Normal and Ears Appear Normal
Respiratory: Clear to Auscultation
Cardiac: Regular Rhythm and S1/S2
GI: Soft, Nontender and Nondistended
Musculoskeletal: No Clubbing, No Cyanosis and No Edema
Skin: Warm and Dry
Neuro: Awake, Alert, Oriented and AO x 3
Psych: Calm
Data Reviewed
-
Labs: Labs Reviewed by me
[2024-07-27 10:46] LABS: INR 0.93
[2024-07-27 10:47] LABS: APTT 25.1 Sec (23.4-35.0); Fibrinogen 371 MG/DL (199-459)
[2024-07-27 10:49] LABS: D-Dimer 0.87 ug/mlFEU (0.00-0.50)
[2024-07-27 10:53] LABS: LDH 401 U/L (120-246)
[2024-07-27 11:55] LABS: Vitamin B12 638 pg/ml (239-931)
--- NOTE | 2024-07-27 14:19 | PTCARENOTE ---
Patient out of bed to chair with supervision. Mild nausea treated with Zofran. ECHO completed. Patient eating majority of meals. Had a bowel movement in toilet and is continent. For repeat labs at 1800.
--- NOTE | 2024-07-27 16:06 | CM ---
CM reviewed chart
Remains in IMU and ADC>48 hours
PT/OT with VN vs no needs recs
CM will continue to follow therapy recs for dc recommendations
Discharge Disposition- home with VN vs no needs
[2024-07-27 19:00] LABS: Hematocrit 24.3 % (37.0-47.0); Hemoglobin 8.1 g/dL (12.0-16.0); Mean Corp Hgb Conc. 33.3 g/dL (33.0-37.0); Platelet Count 22 10^3/uL (130-400); Red Cell Dist. Width 16.6 % (11.5-14.5); White Blood Cell Count 2.3 10^3/uL (4.8-10.8)
[2024-07-27 19:01] LABS: Absolute Neutrophils -Man Diff 1.1 10^3/uL (1.4-6.5); Band Neutrophils 0 % (0-3); Eosinophils 4 % (0-6); Lymphocytes 12 % (20-51); Monocytes 36 % (2-9); Segmented Neutrophils 48 % (42-75)
[2024-07-27 19:02] LABS: Anisocytosis 1+; Microcytosis 2+; Normal RBC Morphology No; Platelets Checked Yes
[2024-07-27 19:03] LABS: Total Cells Counted 100
--- NOTE | 2024-07-27 22:14 | PTCARENOTE ---
Caring for pt overnight. aaox3, no changes in assessment. Denies pain/sob. NSR on monitor, remains RA. IVF running. OOB to BR. 1800 blood work better, pt updated. No other issues. Call orantes in reach.
[2024-07-28] VITALS (25 sets, daily range): BP systolic 81–125; BP diastolic 53–104
[2024-07-28 05:57] LABS: ALT (SGPT) 161 U/L (0-35); AST (SGOT) 116 U/L (14-36); Albumin 2.6 g/dl (3.5-5.0); Alkaline Phosphatase 250 U/L (38-126); Blood Urea Nitrogen 6 mg/dl (7-17); Calcium 8.5 mg/dl (8.4-10.2); Carbon Dioxide 25 mmol/L (22-30); Chloride 108 mmol/L (98-107); Direct Bilirubin 0.8 mg/dl (0.0-0.4); Glucose 64 mg/dl (70-99); Magnesium 1.8 mg/dl (1.6-2.3); Potassium 4.3 mmol/L (3.5-5.1); Sodium 137 mmol/L (135-145); Total Protein 5.2 g/dl (6.3-8.2); eGFR > 60.00
[2024-07-28 06:46] LABS: Hematocrit 20.5 % (37.0-47.0); Hemoglobin 6.7 g/dL (12.0-16.0); Mean Corp Hgb Conc. 32.7 g/dL (33.0-37.0); Mean Corpuscular Hgb 30.3 pg (27.0-31.0); Mean Corpuscular Volume 92.8 fL (81.0-99.0); Mean Platelet Volume 12.5 fL (7.4-10.4); Platelet Count 21 10^3/uL (130-400); Red Blood Cell Count 2.21 10^6/uL (4.20-5.40); Red Cell Dist. Width 16.6 % (11.5-14.5); White Blood Cell Count 2.7 10^3/uL (4.8-10.8)
--- NOTE | 2024-07-28 07:32 | W.PN.HOSP.TC ---
Today's Communication/Plan
-
Blood (PRBC) transfusion ordered.
Assessment / Plan
Assessment / Plan
63 woman who comes in with fatigue after chemo for NSCLC, found to have significant mahmood-cytopenia
CT A/P: There is mild periportal edema which can be seen with acute hepatic injury.
No suspicious hepatic lesions.
Moderate colonic stool burden without evidence of bowel obstruction.
Multiple calcified uterine fibroids.
1. Acute pancytopenia: continues - Hgb < 7 today
-likely due Osimertinib which has been held
-s/p 2U pRBCs and 1U plts, however, H/H numbers worse this am
-appreciate ONC, no G-CSF, possible outpt BMBx
-follow CBC w/diff daily
-follow ANC, afebrile.
-Will transfuse 2 units PRBCs today
2. NSCLC: -s/p XRT/chemo
-CT A/P without evidence of mets
-Outpatient management
3. Elevated LFTs: -CT A/P above and notable for possible acute hepatic injury
-Trend LFTs (currently downtrending)
4. Hypotension: -Pt reports she is not hypotensive at baseline
-She does not feel faint when she stands
-continue IVFs until PO intake resumes to normal
-echo wnl
5. Other problems:
COPD, not in acute exac
Cachexia
DNR, no DVT proph with plts <20
Total time spent on today's encounter was 50 minutes which included time spent in counseling the patient/family regarding diagnosis and treatment plan as listed above, goals of care, and symptom management. Case was discussed with nursing staff,
specialists, and care coordinators/case management. All labs and imaging personally reviewed by me. Remainder the time spent in detailed review of previous records, lab data, imaging, and other medical provider documentation.
Anticipated Discharge: 24 - 48 hours
Subjective/Interval History
-
Date of Service: July 28, 2024
Fells well. No new issues.
Objective Data
-
Labs:
Laboratory Results
07/28/24
05:04
WBC 2.7 L
Hgb 6.7 L*
Hct 20.5 L*
Plt Count 21 L*
Sodium 137
Potassium 4.3
Chloride 108 H
Carbon Dioxide 25
BUN 6 L
Creatinine 0.5 L
Glucose 64 L
Calcium 8.5
Total Bilirubin 1.0
AST 116 H
ALT 161 H
Alkaline Phosphatase 250 H
Vital Signs:
Vital Signs
Temp Pulse Resp BP Pulse Ox
98.4 F 63 16 94/55 98
07/28/24 03:10 07/28/24 06:00 07/28/24 06:00 07/28/24 06:00 07/27/24 20:34
I&O
07/27/24 07/28/24 07/29/24
06:59 06:59 06:59
Intake Total 740 / 740 1480 / 1480
Balance 740 / 740 1480 / 1480
Review of Systems
-
History Source: Patient
All other systems: Reviewed and negative
Physical Exam
-
General: Well Developed, No Apparent Distress, Comfortable and Conversant
HEENT: Normocephalic, Nose Appears Normal and Ears Appear Normal
Respiratory: Clear to Auscultation
Cardiac: Regular Rhythm and S1/S2
GI: Soft, Nontender and Nondistended
Musculoskeletal: No Clubbing, No Cyanosis and No Edema
Skin: Warm and Dry
Neuro: Awake, Alert, Oriented and AO x 3
Psych: Calm
Data Reviewed
-
Labs: Labs Reviewed by me
[2024-07-28 07:51] LABS: Absolute Neutrophils -Man Diff 1.4 10^3/uL (1.4-6.5); Atypical Lymphocytes 3 %; Band Neutrophils 0 % (0-3); Eosinophils 2 % (0-6); Lymphocytes 20 % (20-51); Monocytes 20 % (2-9); Normal RBC Morphology Yes; Platelets Checked Yes; Segmented Neutrophils 55 % (42-75); Total Cells Counted 100
--- NOTE | 2024-07-28 08:14 | W.PN.ONC2 ---
Today's Communication / Plan
-
agree with PRBC ordered by primary service
check peripheral flow, parvo, Ehrlichia, babesiosis, lyme
If discharged will need CBC checked Saturday and Saturday with [facility]
case discussed with Dr. Moore medical oncology team
Pt plans to transition to [place] cancer specialist after Dr. 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
Impression
Impression
Severe pancytopenia. s/p 2units PRBC, 1unit SDP during hospitalization. Discussed case with primary oncologist, no prior significant cytopenias with treatment. Monthly CBC on osimertinib w/o pancytopenia.
No B12 or folate deficency. Hemolysis less likely with normal retic, though, LDH and LFTs elevated, haptoglobin pending. Eddie pending
hx non-small cell lung CA right lung Dx July 2019 status post chemo, radiation, Keytruda x 1 year
Recurrent Metastatic non-small cell lung cancer presumably based on her treatment is EGFR positive on osimertinib
transaminitis -improving, CT ab/pelvis showed mild periportal edema which can be seen with acute hepatic injury. No suspicious hepatic lesions
constipation
Plan
Plan
metastatic lung cancer to adrenal gland EGFR positive confirmed by primary oncology team at [facility]
Osimertinib has been shown to occasionally cause severe cytopenias and aplastic anemia- hold osimertinib for now -resumption/dose reductions to be determined by primary oncologist in OP follow up
Consider OP BMBx in OP follow up with primary oncologist
Subjective/Objective
Subjective
no new complaints
afebrile, no hypoxia, asymptomatic hypotension
denies bleeding
BM x 1 with miralax
Vital Signs:
Vital Signs
Temp Pulse Resp BP Pulse Ox
98.1 F 63 16 94/55 98
07/28/24 07:00 07/28/24 06:00 07/28/24 06:00 07/28/24 06:00 07/27/24 20:34
Lab Results:
Laboratory Data
WBC 2.7 10^3/uL (4.8-10.8) L 07/28/24 05:04
Hgb 6.7 g/dL (12.0-16.0) L* 07/28/24 05:04
Plt Count 21 10^3/uL (130-400) L* 07/28/24 05:04
PT 13.0 Sec (11.4-14.6) 07/27/24 10:13
INR 0.93 07/27/24 10:13
APTT 25.1 Sec (23.4-35.0) 07/27/24 10:13
eGFR > 60.00 07/28/24 05:04
Physical Exam
HEENT: Moist Mucous Membranes; No Jaundice
Cardiology: Normal Sinus Rhythm
Pulmonary: Clear
GI: Soft
Extremities: Pulses Present; No Edema
Neuro: Non Focal
Orders
Orders
Orders From Last 24 Hours
07/27/24 08:57
Hemetest Stools As Directed
07/27/24 10:13
B12 [Vitamin B12] Routine
D-Dimer Routine
Fibrinogen Routine
Folate Routine
LDH Routine
PT/INR [Prothrombin Time] Routine
PTT Routine
Reticulocyte Count Routine
07/28/24 05:04
Babesia microti Abs, IgG/IgM [S] IN AM
Ehrlichia chaffeensis Ab Panel [S] IN AM
Lyme Progressive IN AM
Parvo Virus (B19) IgG & IgM [S] IN AM
07/28/24 08:13
Leukemia/Lymphoma Phenotyping [S] Stat
[2024-07-28] MEDS: MIRALAX 17 GRAMS PO (08:36)
[2024-07-28] MEDS: SENOKOT-S 1 TABLET PO ×2 (08:36→19:43)
[2024-07-29] VITALS (9 sets, daily range): BP systolic 89–152; BP diastolic 58–75
--- NOTE | 2024-07-29 00:33 | PTCARENOTE ---
assumed care of patient. pt is AAOx3- able to make needs known. no complaints of pain. pt is self in the room. care ongoing.
[2024-07-29 05:14] LABS: Hematocrit 33.8 % (37.0-47.0); Hemoglobin 11.4 g/dL (12.0-16.0); Mean Corp Hgb Conc. 33.7 g/dL (33.0-37.0); Mean Corpuscular Hgb 29.2 pg (27.0-31.0); Mean Corpuscular Volume 86.4 fL (81.0-99.0); Platelet Count 26 10^3/uL (130-400); Red Blood Cell Count 3.91 10^6/uL (4.20-5.40); Red Cell Dist. Width 17.3 % (11.5-14.5); White Blood Cell Count 2.4 10^3/uL (4.8-10.8)
[2024-07-29 05:19] LABS: ALT (SGPT) 179 U/L (0-35); AST (SGOT) 139 U/L (14-36); Albumin 3.1 g/dl (3.5-5.0); Alkaline Phosphatase 285 U/L (38-126); Blood Urea Nitrogen 7 mg/dl (7-17); Calcium 9.1 mg/dl (8.4-10.2); Carbon Dioxide 26 mmol/L (22-30); Chloride 106 mmol/L (98-107); Glucose 90 mg/dl (70-99); Potassium 4.8 mmol/L (3.5-5.1); Sodium 137 mmol/L (135-145); Total Bilirubin 1.4 mg/dl (0.2-1.3); eGFR > 60.00
[2024-07-29] MEDS: SENOKOT-S 1 TABLET PO ×2 (08:30→19:53)
[2024-07-29] MEDS: MIRALAX 17 GRAMS PO (08:30)
--- NOTE | 2024-07-29 10:03 | W.PN.HOSP.TC ---
Today's Communication/Plan
-
Encourage po food. If blood counts remain stable, likely home tomorrow.
Assessment / Plan
Assessment / Plan
63 woman who comes in with fatigue after chemo for NSCLC, found to have significant mahmood-cytopenia
CT A/P: There is mild periportal edema which can be seen with acute hepatic injury.
No suspicious hepatic lesions.
Moderate colonic stool burden without evidence of bowel obstruction.
Multiple calcified uterine fibroids.
1. Acute pancytopenia: continues - improving
-likely due Osimertinib which has been held
-s/p 2U pRBCs yesterday
-appreciate ONC, no G-CSF, possible outpt BMBx
-follow CBC w/diff daily
-follow ANC, afebrile.
-if numbers stable tomorrow, (particularly the platelets) then OK to send home
2. NSCLC: -s/p XRT/chemo
-CT A/P without evidence of mets
-Outpatient management
3. Elevated LFTs: -CT A/P above and notable for possible acute hepatic injury
-Trend LFTs (currently still elevated)
4. Hypotension: -Pt reports she is not hypotensive at baseline
-She does not feel faint when she stands
-continue IVFs until PO intake resumes to normal
-echo wnl
5. Other problems:
COPD, not in acute exac
Cachexia
DNR, no DVT proph with plts <20
Total time spent on today's encounter was 50 minutes which included time spent in counseling the patient/family regarding diagnosis and treatment plan as listed above, goals of care, and symptom management. Case was discussed with nursing staff,
specialists, and care coordinators/case management. All labs and imaging personally reviewed by me. Remainder the time spent in detailed review of previous records, lab data, imaging, and other medical provider documentation.
Anticipated Discharge: Within 24 hours
Subjective/Interval History
-
Date of Service: July 29, 2024
Feels better than yesterday. However, appetite still low.
Objective Data
-
Labs:
Laboratory Results
07/29/24 07/29/24
04:52 04:53
WBC 2.4 L*
Hgb 11.4 L D
Hct 33.8 L
Plt Count 26 L* D
Sodium 137
Potassium 4.8
Chloride 106
Carbon Dioxide 26
BUN 7
Creatinine 0.5 L
Glucose 90
Calcium 9.1
Total Bilirubin 1.4 H
AST 139 H
ALT 179 H
Alkaline Phosphatase 285 H
Vital Signs:
Vital Signs
Temp Pulse Resp BP Pulse Ox
97.8 F 81 17 152/75 97
07/29/24 07:35 07/29/24 08:02 07/29/24 08:02 07/29/24 08:02 07/29/24 08:00
I&O
07/28/24 07/29/24 07/30/24
06:59 06:59 06:59
Intake Total 1480 / 1480 1460 / 1460
Balance 1480 / 1480 1460 / 1460
Review of Systems
-
History Source: Patient
All other systems: Reviewed and negative
Physical Exam
-
General: Well Developed, No Apparent Distress, Comfortable and Conversant
HEENT: Normocephalic, Atraumatic, Moist Mucous Membranes, Nose Appears Normal and Ears Appear Normal
Respiratory: Clear to Auscultation
Cardiac: Regular Rhythm and S1/S2
GI: Soft
Musculoskeletal: No Clubbing, No Cyanosis and No Edema
Skin: Warm and Dry
Neuro: Awake, Alert, Oriented and AO x 3
Psych: Calm
Data Reviewed
-
Labs: Labs Reviewed by me
--- NOTE | 2024-07-29 10:44 | W.PN.ONC2 ---
Today's Communication / Plan
-
- counts stable/improving. If CBC tomorrow stable Ok for discharge from oncological standpoint with outpt lab monitoring
- hold osimertinib, olanzapine on discharge.
Impression
Impression
1. Severe pancytopenia
2. hx non-small cell lung CA right lung Dx July 2019 status post chemo, radiation, Keytruda x 1 year
Recurrent Metastatic non-small cell lung cancer presumably based on her treatment is EGFR positive on osimertinib
3. transaminitis
Plan
Plan
1. Severe pancytopenia: case was discussed with primary oncologist, no prior significant cytopenias with treatment. Monthly CBC on osimertinib w/o pancytopenia.
No B12 or folate deficiency. Hemolysis less likely with normal retic, though, LDH and LFTs elevated. Eddie negative.
osimertinib can be associated with cytopenias, G3-4 with multiple cell lines involved rare. Continue to hold for now.
Pt also was started on olanzapine over past month due to EGFRi associated nausea which can be associated with pancytopenia which usually presents within first month of starting? recommend holding this now and on discharge.
CBC today with hgb up to 11.4 from 6.8 yesterday s/p 2 units? ANC yesterday > 1000. WBC today 2.4, plts with mild uptrend to 26,000.
CBC daily. transfuse plts < 20K, hgb < 7.0 g/dl.
2. hx non-small cell lung CA right lung Dx July 2019 status post chemo, radiation, Keytruda x 1 year
Recurrent Metastatic non-small cell lung cancer presumably based on her treatment is EGFR positive on osimertinib
follows with Dr Moore at [facility], considering transfer to [facility]. will arrange follow up.
3. transaminitis -improving, CT ab/pelvis showed mild periportal edema which can be seen with acute hepatic injury. No suspicious hepatic lesions
CMP daily.
Subjective/Objective
Chief Complaint
pancytopenia, stage IV NSCLC
Subjective
pt has no new complaints today. Denies fevers, chills. fatigue improved.
Vital Signs:
Vital Signs
Temp Pulse Resp BP Pulse Ox
97.8 F 81 17 152/75 97
07/29/24 07:35 07/29/24 08:02 07/29/24 08:02 07/29/24 08:02 07/29/24 08:00
Lab Results:
Laboratory Data
WBC 2.4 10^3/uL (4.8-10.8) L* 07/29/24 04:52
Hgb 11.4 g/dL (12.0-16.0) L D 07/29/24 04:52
Plt Count 26 10^3/uL (130-400) L* D 07/29/24 04:52
PT 13.0 Sec (11.4-14.6) 07/27/24 10:13
INR 0.93 07/27/24 10:13
APTT 25.1 Sec (23.4-35.0) 07/27/24 10:13
eGFR > 60.00 07/29/24 04:53
Physical Exam
HEENT: No Jaundice
Pulmonary: Clear
Extremities: No Edema
Neuro: Non Focal
Review of Systems
Review of Systems
Constitutional: Denies Fever
Respiratory: Denies Dyspnea
Cardiovascular: Denies Chest Pain
Gastrointestinal: Reports Other (constipation ); Denies Nausea/Vomiting
Neurological: Denies Headache
Hem/Lymphatic: Denies Easy Bruising
--- NOTE | 2024-07-29 14:06 | PTCARENOTE ---
Patient AOx3. Patient on RA. VSS. NSR on monitor. Patient stated that she has 'small hard BM's'. See MAR for bowel regimen. Independent during ambulation. Call orantes within reach, bed in lowest position, and bed of wheels locked.
--- NOTE | 2024-07-29 19:13 | PTCARENOTE ---
Verbal report given to Jaelyn RN on 3W for transfer.
--- NOTE | 2024-07-29 21:32 | W.PN.UPDATE ---
Update Note
Progress Note Update
AMA form
--- NOTE | 2024-07-30 03:08 | PTCARENOTE ---
Pt admitted to 3W from IMU. Pt aaox3 and stable upon arrival. Pt ambulatory in room. No pain reported. Upon transfer, pt requested to leave AMA, stating she 'can just get lab work tomorrow.' Discussed with SHANK TAPPER who spoke with pt, and pt agreed to
stay overnight for planned blood work in the morning.
[2024-07-30 07:10] VITALS: BP 95/74
[2024-07-30 07:26] LABS: Number Of Markers 26 markers; Source Blood
[2024-07-30 08:10] LABS: % Basophils 0.4 % (0-2); % Eosinophils 1.5 % (0-6); % Immature Granulocytes 0.8 % (0-0.5); % Lymphocytes 17.1 % (20.5-51.1); % Monocytes 28.5 % (1.7-9.3); % Neutrophils 51.7 % (42.2-75.2); Absolute Lymphocytes 0.5 10^3/uL (1.2-3.4); Absolute Monocytes 0.8 10^3/uL (0.1-0.6); Absolute Neutrophils 1.4 10^3/uL (1.4-6.5); Hematocrit 38.3 % (37.0-47.0); Hemoglobin 12.4 g/dL (12.0-16.0); Mean Corp Hgb Conc. 32.4 g/dL (33.0-37.0); Mean Corpuscular Hgb 28.8 pg (27.0-31.0); Mean Corpuscular Volume 89.1 fL (81.0-99.0); Nucleated Red Blood Cells % 0 %; Platelet Count 40 10^3/uL (130-400); Red Cell Dist. Width 17.9 % (11.5-14.5); White Blood Cell Count 2.6 10^3/uL (4.8-10.8)
[2024-07-30 08:42] LABS: ALT (SGPT) 192 U/L (0-35); AST (SGOT) 148 U/L (14-36); Albumin 3.6 g/dl (3.5-5.0); Alkaline Phosphatase 300 U/L (38-126); Blood Urea Nitrogen 9 mg/dl (7-17); Calcium 9.3 mg/dl (8.4-10.2); Carbon Dioxide 28 mmol/L (22-30); Chloride 102 mmol/L (98-107); Glucose 70 mg/dl (70-99); Potassium 4.2 mmol/L (3.5-5.1); Sodium 138 mmol/L (135-145); Total Bilirubin 1.4 mg/dl (0.2-1.3); Total Protein 6.7 g/dl (6.3-8.2); eGFR > 60.00
[2024-07-30 09:41] LABS: Glucose - Point of Care 76 mg/dl (70-99)
[2024-07-30] MEDS: SENOKOT-S PO (09:41)
[2024-07-30] MEDS: MIRALAX PO (09:41)
--- NOTE | 2024-07-30 09:50 | W.PN.ONC2 ---
Today's Communication / Plan
-
check CBC, CMP Saturday with Dr. Moore's office
hold osimertinib
She had restaging scheduled for 08/07
Impression
Impression
1. Severe pancytopenia -improving
2. hx non-small cell lung CA right lung Dx July 2019 status post chemo, radiation, Keytruda x 1 year
Recurrent Metastatic non-small cell lung cancer presumably based on her treatment is EGFR positive on osimertinib
3. transaminitis
Plan
Plan
1. Severe pancytopenia: case was discussed with primary oncologist, no prior significant cytopenias with treatment. Monthly CBC on osimertinib w/o pancytopenia.
No B12 or folate deficiency. Hemolysis less likely with normal retic, though, LDH and LFTs elevated. Eddie negative.
osimertinib can be associated with cytopenias, G3-4 with multiple cell lines involved rare. Continue to hold for now.
Pt also was started on olanzapine over past month due to EGFRi associated nausea which can be associated with pancytopenia which usually presents within first month of starting? recommend holding this now and on discharge.
CBC today continues to improve.
CBC daily. transfuse plts < 20K, hgb < 7.0 g/dl.
2. hx non-small cell lung CA right lung Dx July 2019 status post chemo, radiation, Keytruda x 1 year
Recurrent Metastatic non-small cell lung cancer presumably based on her treatment is EGFR positive on osimertinib
follows with Dr Moore at [facility], considering transfer to [facility]. will arrange follow up.
3. transaminitis -improving, CT ab/pelvis showed mild periportal edema which can be seen with acute hepatic injury. No suspicious hepatic lesions
CMP daily.
Subjective/Objective
Subjective
fatigue otherwise no new complaints
moving bowels with miralax
Vital Signs:
Vital Signs
Temp Pulse Resp BP Pulse Ox
97.4 F 77 18 95/74 98
07/30/24 07:10 07/30/24 07:10 07/30/24 07:10 07/30/24 07:10 07/30/24 07:10
Lab Results:
Laboratory Data
WBC 2.6 10^3/uL (4.8-10.8) L 07/30/24 07:20
Hgb 12.4 g/dL (12.0-16.0) 07/30/24 07:20
Plt Count 40 10^3/uL (130-400) L D 07/30/24 07:20
PT 13.0 Sec (11.4-14.6) 07/27/24 10:13
INR 0.93 07/27/24 10:13
APTT 25.1 Sec (23.4-35.0) 07/27/24 10:13
eGFR > 60.00 07/30/24 07:20
Physical Exam
HEENT: Moist Mucous Membranes; No Jaundice
Cardiology: Normal Sinus Rhythm
Pulmonary: Clear
GI: Soft
Extremities: Pulses Present; No Edema
Neuro: Non Focal
[2024-07-30 10:36] VITALS: BMI 17.0
[2024-07-30 11:17] LABS: Absolute Neutrophils -Man Diff 1.5 10^3/uL (1.4-6.5); Band Neutrophils 0 % (0-3); Eosinophils 2 % (0-6); Lymphocytes 17 % (20-51); Metamyelocytes 2 % (-); Monocytes 19 % (2-9); Myelocytes 1 % (-); Platelets Checked Yes; Segmented Neutrophils 59 % (42-75)
--- NOTE | 2024-07-30 11:17 | W.PN.HOSP.TC ---
Today's Communication/Plan
-
Discharge home today
Assessment / Plan
Assessment / Plan
63 woman who comes in with fatigue after chemo for NSCLC, found to have significant mahmood-cytopenia
CT A/P: There is mild periportal edema which can be seen with acute hepatic injury.
No suspicious hepatic lesions.
Moderate colonic stool burden without evidence of bowel obstruction.
Multiple calcified uterine fibroids.
1. Acute pancytopenia: continues - improving
-likely due Osimertinib which has been held
-s/p 2U pRBCs
-appreciate ONC, no G-CSF, possible outpt BMBx
-follow CBC w/diff daily
-follow ANC, afebrile.
-Stable WBCs, we will completely improved, will discharge home
2. NSCLC: -s/p XRT/chemo
-CT A/P without evidence of mets
-Outpatient management
3. Elevated LFTs: -CT A/P above and notable for possible acute hepatic injury
-Trend LFTs (currently still elevated)
4. Hypotension: -Pt reports she is not hypotensive at baseline
-She does not feel faint when she stands
-continue IVFs until PO intake resumes to normal
-echo wnl
5. Other problems:
COPD, not in acute exac
Cachexia
DNR, no DVT proph with plts <20
Total time spent on today's encounter was 50 minutes which included time spent in counseling the patient/family regarding diagnosis and treatment plan as listed above, goals of care, and symptom management. Case was discussed with nursing staff,
specialists, and care coordinators/case management. All labs and imaging personally reviewed by me. Remainder the time spent in detailed review of previous records, lab data, imaging, and other medical provider documentation.
Anticipated Discharge: Today
Subjective/Interval History
-
Date of Service: July 30, 2024
Patient seen and examined at bedside, denies any chest pain or shortness of breath, no abdominal pain, no nausea, no vomiting, no diarrhea or constipation.
Objective Data
-
Labs:
Laboratory Results
07/30/24
07:20
WBC 2.6 L
Hgb 12.4
Hct 38.3
Plt Count 40 L D
Sodium 138
Potassium 4.2
Chloride 102
Carbon Dioxide 28
BUN 9
Creatinine 0.6
Glucose 70
Calcium 9.3
Total Bilirubin 1.4 H
AST 148 H
ALT 192 H
Alkaline Phosphatase 300 H
Vital Signs:
Vital Signs
Temp Pulse Resp BP Pulse Ox
97.4 F 77 18 95/74 98
07/30/24 07:10 07/30/24 07:10 07/30/24 07:10 07/30/24 07:10 07/30/24 07:10
I&O
07/29/24 07/30/24 07/31/24
06:59 06:59 06:59
Intake Total 1460 / 1460
Balance 1460 / 1460
Physical Exam
-
General: Well Developed, No Apparent Distress, Comfortable and Conversant
HEENT: Normocephalic, Atraumatic, Moist Mucous Membranes, Nose Appears Normal and Ears Appear Normal
Respiratory: Clear to Auscultation
Cardiac: Regular Rhythm and S1/S2
GI: Soft
Musculoskeletal: No Clubbing, No Cyanosis and No Edema
Skin: Warm and Dry
Neuro: Awake, Alert, Oriented and AO x 3
Psych: Calm
[2024-07-30 11:18] LABS: Anisocytosis 1+; Normal RBC Morphology No; Polychromasia Slight; Total Cells Counted 100
--- NOTE | 2024-07-30 11:21 | W.DCSUMMARY ---
Discharge Summary
Discharge Data
Date of Admission: 07/25/24
Date of Discharge: 07/30/24
-
Pending Results: No
Hospital Course
63 woman who comes in with fatigue after chemo for NSCLC, found to have significant mahmood-cytopenia
CT A/P: There is mild periportal edema which can be seen with acute hepatic injury.
No suspicious hepatic lesions.
Moderate colonic stool burden without evidence of bowel obstruction.
Multiple calcified uterine fibroids.
1. Acute pancytopenia: continues - improving
-likely due Osimertinib which has been held
-s/p 2U pRBCs
-appreciate ONC, no G-CSF, possible outpt BMBx
-follow CBC w/diff daily
-follow ANC, afebrile.
-Stable WBCs, we will completely improved, will discharge home
2. NSCLC: -s/p XRT/chemo
-CT A/P without evidence of mets
-Outpatient management
3. Elevated LFTs: -CT A/P above and notable for possible acute hepatic injury
-Trend LFTs (currently still elevated)
4. Hypotension: -Pt reports she is not hypotensive at baseline
-She does not feel faint when she stands
-continue IVFs until PO intake resumes to normal
-echo wnl
5. Other problems:
COPD, not in acute exac
Cachexia
DNR, no DVT proph with plts <20
Discharge Plan
-
Patient Disposition: Home (Routine Discharge)
Discharge Diagnosis/Procedures: Pancytopenia
Diet: No restrictions
Activity: No restrictions
Driving Restrictions: As prior to admission
Blood Work: CBC after 1 week
Referrals:
Kenneth Moore MD [Non-Admitting Privileges] - in two weeks
UNKNOWN - PT DOES,NOT KNOW [Family Provider] -
Prescriptions:
New
(DME) complete blood count
See Rx Instructions .Route .MEDSUPPLY Qty: 1 0RF
Rx Instructions:
to be done after one week 08/06/2024
Continued
sennosides [senna] 8.6 mg Tablet
8.6 mg PO HSPRN PRN (Reason: constipation)
olanzapine 5 mg Tablet
5 mg PO DAILYPRN PRN (Reason: nausea)
Tagrisso 80 mg Tablet
80 mg PO DAILY
Discharge Orders:
Discharge Patient (As Directed); Ordered 07/30/24
Ordered By: Dayday Echeverria
Discharge Date and Time
Print Language: KOSOVAN
[2024-07-30 11:49] LABS: Lyme Antibody Screen, EIA Negative (Negative)
[2024-07-30 18:55] LABS: Babesia microti IgG < 1:16 (< 1:16); Babesia microti IgM <1:20 (<1:20)
[2024-07-30 23:10] LABS: Parvo B19 Ab, IgM 0.28 IV (<=0.89); Parvo Virus B19 Ab, IgG 8.66 IV (<=0.90)
[2024-07-31 08:26] LABS: Ehrlichia chaffeensis IgG Ab <1:64 (<1:64); Ehrlichia chaffeensis IgM Ab < 1:16 (< 1:16)
== END 2024-07-30 12:39 | disposition home or self-care (01) | DRG 180 ==
LOC: 3 WEST ACU 13:44
PROVIDERS: Clinical Nurse Specialist Family Health; Internal Medicine; Nurse Practitioner Acute Care; Nurse Practitioner Gerontology; ADMITTING PHYSICIAN Hospitalist; ATTENDING PHYSICIAN General Practice; EMERGENCY PHYSICIAN Emergency Medicine
PROC: 30233N1 Transfusion of Nonautologous Red Blood Cells into Peripheral Vein, Percutaneous Approach (ICD-10-PCS; 2024-07-25)
DX: C34.90 Malignant neoplasm of unspecified part of unspecified bronchus or lung (principal); D61.810 Antineoplastic chemotherapy induced pancytopenia; E46 Unspecified protein-calorie malnutrition; R64 Cachexia; Z68.1 Body mass index [BMI] 19.9 or less, adult; Z87.891 Personal history of nicotine dependence; I95.89 Other hypotension; Z66 Do not resuscitate; D25.9 Leiomyoma of uterus, unspecified
CPT/HCPCS: 36430; 74177; 80048; 80053; 82248; 82607; 82746; 82962; 83615; 83690; 83735; 85025; 85027; 85045; 85379; 85384; 85610; 85730; 86618; 86666; 86747; 86753; 86850; 86880; 86900; 86901; 86920; 93005; 93306; 97162; 97166; 99285; P9016; P9073; Q9967

== ENCOUNTER → 2024-11-27 09:31 | Outpatient (REF) | payer MEDICARE, SELFPAY | LOC: WDC 09:31 | PROVIDERS: ATTENDING PHYSICIAN Physician Assistant | DX: Z13.820 Encounter for screening for osteoporosis (principal); Z12.31 Encounter for screening mammogram for malignant neoplasm of breast; M81.0 Age-related osteoporosis without current pathological fracture | CPT/HCPCS: 77063; 77067; 77080 ==

== ENCOUNTER 2024-12-24 19:33 | Observation (INO) | payer MEDICARE, SELFPAY ==
[2024-12-24] VITALS (11 sets, daily range): BP systolic 94–123; BP diastolic 52–94; PULSE 68–87; BMI 19.2; BMI 18.5
[2024-12-24 14:51] LABS: % Basophils 0.2 % (0-2); % Immature Granulocytes 0.5 % (0-0.5); % Lymphocytes 4.1 % (20.5-51.1); % Monocytes 3.3 % (1.7-9.3); % Neutrophils 91.9 % (42.2-75.2); Absolute Lymphocytes 0.3 10^3/uL (1.2-3.4); Absolute Monocytes 0.2 10^3/uL (0.1-0.6); Absolute Neutrophils 5.8 10^3/uL (1.4-6.5); Hematocrit 41.1 % (37.0-47.0); Hemoglobin 13.3 g/dL (12.0-16.0); Mean Corp Hgb Conc. 32.4 g/dL (33.0-37.0); Mean Corpuscular Hgb 28.9 pg (27.0-31.0); Mean Corpuscular Volume 89.3 fL (81.0-99.0); Mean Platelet Volume 9.9 fL (7.4-10.4); Nucleated Red Blood Cells % 0 %; Platelet Count 186 10^3/uL (130-400); Red Cell Dist. Width 13.9 % (11.5-14.5); White Blood Cell Count 6.3 10^3/uL (4.8-10.8)
[2024-12-24 14:52] LABS: Urine Albumin 1+ (Neg - Trace); Urine Bilirubin Negative (Negative); Urine Character Clear (Clear); Urine Color Yellow; Urine Glucose Negative (Negative); Urine Ketone Negative (Negative); Urine Leukocyte Negative (Negative); Urine Nitrite Negative (Negative); Urine Occult Blood Negative (Negative); Urine Urobilinogen Negative (Neg - 1+)
[2024-12-24 15:08] LABS: Urine Squamous Cell 0-2 /LPF (Few)
[2024-12-24 15:10] LABS: Urine Red Blood Cell 0-2 /HPF (0-2); Urine White Cell 0-2 /HPF (0-5)
[2024-12-24 15:12] LABS: ALT (SGPT) 22 U/L (0-35); AST (SGOT) 24 U/L (14-36); Albumin 4.7 g/dl (3.5-5.0); Alkaline Phosphatase 80 U/L (38-126); Blood Urea Nitrogen 21 mg/dl (7-17); Calcium 10.1 mg/dl (8.4-10.2); Carbon Dioxide 31 mmol/L (22-30); Chloride 104 mmol/L (98-107); Estimated Creatinine Clearance 55 ml/min; Glucose 140 mg/dl (70-99); Potassium 4.7 mmol/L (3.5-5.1); Sodium 141 mmol/L (135-145); Total Protein 7.6 g/dl (6.3-8.2); eGFR > 60.00
[2024-12-24 15:30] LABS: Troponin I 0.055 ng/ml
--- NOTE | 2024-12-24 15:30 | ED.GENMED ---
History of Present Illness
<Christelle Henry DO - Last Filed: 12/24/24 15:47>
General
Chief Complaint: Fall
Time Seen by Provider: 12/24/24 14:07
History of Present Illness
History of Present Illness:
64-year-old female with history of lung cancer, in remission, presenting after syncopal episode. Patient reports this morning, she got up around 6:30 in the morning. She went to the kitchen and started to feel lightheaded with tunnel vision.
Before she knew it she was on the ground and had a syncopal episode. She is unsure whether or not she struck her head. She is not on any thinners. Denies any headache or neck pain. She did not eat or drink anything this morning prior to syncopal
episode. Does note that last evening she was rollerblading and fell onto her buttock region. Does note that she has been having some lower back pain, however has overall improved this morning. Denies weakness or numbness to extremities. Denies
head injury at that time. Denies any present chest pain or difficulty breathing or any preceding chest pain prior to syncope. She has been having some URI symptoms in the past few months, and her doctor started her on steroids. She was told that
she has some 'inflammation in her lungs '. Denies any history of blood clot. Denies additional acute medical complaints
Past History
<Christelle Henry DO - Last Filed: 12/24/24 15:47>
Past History
ED Past Medical History: Cancer (Lung cancer)
ED Past Surgical History: None
Social History
Tobacco: Non-smoker
Personal:
Living: with family
Employment: Employed
Phy Exam
<Christelle Henry DO - Last Filed: 12/24/24 15:47>
Physical Exam
Physical Exam:
General: Well-appearing, no clinical signs of dehydration, nontoxic and in no acute distress
HEENT: protecting airway
Head: atraumatic
Neck: appears supple, no tenderness
CV: Normal heart rate, regular rhythm
Resp: No accessory muscle use, no increased work of breathing, lungs clear to auscultation bilaterally
Abd: No distention
Extremities: No deformities, no swelling, no erythema. No tenderness to midline spine. Mild tenderness to the right lumbar musculature without any contusion or skin changes
Neuro: alert, no focal neurologic deficit
: deferred
Rectal: deferred
Psych: Normal affect
Skin: Intact
Course
<Christelle Henry, DO - Last Filed: 12/24/24 15:47>
Orders/Labs/Results
Orders:
Orders
12/24/24 13:24
EKG [Electrocardiogram (*1)] Urgent
Reason for Study: Syncope
12/24/24 13:25
EKG- Treatment ONCE
12/24/24 14:35
CT Head W/o Iv Contrast Urgent
Comment:
Reason For Exam: syncope
Orthostatic VS- Treatment ONCE
12/24/24 14:40
Complete Blood Count/With Diff Urgent
Comprehensive Metabolic Panel Urgent
D-Dimer Urgent
Troponin I Urgent
Urinalysis Reflex To Culture Urgent
Date Specimen was Collected: 12/24/24
Time Specimen was Collected: 14:39
Urine Microscopic Reflex Cult Urgent
12/24/24 15:38
CT Chest PE Study Urgent
Comment:
Reason For Exam: syncope, elevated dimer and troponin
12/24/24 17:34
Troponin I Urgent
12/24/24 17:40
Electrocardiogram (*1) Urgent
Reason for Study: Syncope
Abnormal Lab Results
12/24/24
14:40
MCHC 32.4 L g/dL
(33.0-37.0)
Absolute Lymphs (auto) 0.3 L 10^3/uL
(1.2-3.4)
Neutrophils % 91.9 H %
(42.2-75.2)
Lymphocytes % 4.1 L %
(20.5-51.1)
D-Dimer 2.80 H ug/mlFEU
(0.00-0.50)
Carbon Dioxide 31 H mmol/L
(22-30)
BUN 21 H mg/dl
(7-17)
Glucose 140 H mg/dl
(70-99)
Troponin I 0.055 H* ng/ml
Urine Albumin (Reflex) 1+ A
(Neg - Trace)
12/24/24 14:40
12/24/24 14:40
Vital Signs
Initial and Last Documented VS:
Initial Vital Signs
Temp Pulse Resp BP Pulse Ox
36.9 C 68 18 123/94 98
12/24/24 13:18 12/24/24 13:18 12/24/24 13:18 12/24/24 13:18 12/24/24 13:18
Last Documented Vital Signs
Temp Pulse Resp BP Pulse Ox
36.9 C 60 17 96/72 99
12/24/24 13:18 12/24/24 17:31 12/24/24 17:31 12/24/24 17:31 12/24/24 17:31
<Stalin Aceves MD - Last Filed: 12/24/24 18:15>
Orders/Labs/Results
Orders:
Orders
12/24/24 13:24
EKG [Electrocardiogram (*1)] Urgent
Reason for Study: Syncope
12/24/24 13:25
EKG- Treatment ONCE
12/24/24 14:35
CT Head W/o Iv Contrast Urgent
Comment:
Reason For Exam: syncope
Orthostatic VS- Treatment ONCE
12/24/24 14:40
Complete Blood Count/With Diff Urgent
Comprehensive Metabolic Panel Urgent
D-Dimer Urgent
Troponin I Urgent
Urinalysis Reflex To Culture Urgent
Date Specimen was Collected: 12/24/24
Time Specimen was Collected: 14:39
Urine Microscopic Reflex Cult Urgent
12/24/24 15:38
CT Chest PE Study Urgent
Comment:
Reason For Exam: syncope, elevated dimer and troponin
12/24/24 17:34
Troponin I Urgent
12/24/24 17:40
Electrocardiogram (*1) Urgent
Reason for Study: Syncope
Abnormal Lab Results
12/24/24
14:40
MCHC 32.4 L g/dL
(33.0-37.0)
Absolute Lymphs (auto) 0.3 L 10^3/uL
(1.2-3.4)
Neutrophils % 91.9 H %
(42.2-75.2)
Lymphocytes % 4.1 L %
(20.5-51.1)
D-Dimer 2.80 H ug/mlFEU
(0.00-0.50)
Carbon Dioxide 31 H mmol/L
(22-30)
BUN 21 H mg/dl
(7-17)
Glucose 140 H mg/dl
(70-99)
Troponin I 0.055 H* ng/ml
Urine Albumin (Reflex) 1+ A
(Neg - Trace)
12/24/24 14:40
12/24/24 14:40
Vital Signs
Initial and Last Documented VS:
Initial Vital Signs
Temp Pulse Resp BP Pulse Ox
36.9 C 68 18 123/94 98
12/24/24 13:18 12/24/24 13:18 12/24/24 13:18 12/24/24 13:18 12/24/24 13:18
Last Documented Vital Signs
Temp Pulse Resp BP Pulse Ox
36.9 C 60 17 96/72 99
12/24/24 13:18 12/24/24 17:31 12/24/24 17:31 12/24/24 17:31 12/24/24 17:31
<Christelle Henry DO - Last Filed: 12/24/24 15:47>
MDM/Problems Addressed
MDM/Problems Addressed:
64-year-old female with prior history of lung cancer, in remission, presenting for syncopal episode. Vital signs are normal.
On exam patient is resting comfortably, no acute complaints. EKG obtained upon arrival in the setting of syncope, without acute arrhythmia or ischemia. Patient currently denying any chest pain or difficulty breathing. Symptoms appear consistent
with likely vasovagal etiology. Does note prodromal lightheadedness, tunneled vision. Will obtain orthostatic vital signs. Will also screen with laboratory analysis. In the setting of lung cancer history and unprovoked syncopal episode, will
also send D-dimer as well as troponin. Regarding patient's back pain, appears a musculoskeletal. No midline tenderness. Minimal tenderness to the right lumbar musculature. No neurovascular compromise. Patient denies any known head strike,
however unwitnessed fall this morning, on tile. Will also obtain CT brain imaging.
15:40 - Patient's troponin is slightly elevated, as well as her dimer. For this reason we will proceed with CT chest imaging for rule out PE.
<Christelle Henry, DO - Last Filed: 12/24/24 15:47>
*EKG
Interpreted by ED Provider?: Yes
EKG Intrepretation Date: 12/24/24
EKG Intrepretation Time: 15:37
Interpretation: normal
Heart Rate: 85
Rate: normal
Rhythm: sinus
[place]: normal axis
Interval: normal interval
QRS Pattern: normal QRS
Ischemia: no ischemia
*Critical Care Note
Total Time (30-74mins, 75-104mins- exclusive of procedures): Not Applicable
<Stalin Aceves MD - Last Filed: 12/24/24 18:15>
Update Note
Update Note:
UPDATE (Stalin Aceves MD)
I have seen and evaluated the patient after signout and reviewed all labs and imaging.
Focused HPI: 64-year-old female with history of lung cancer presents to the ER for evaluation after syncopal event. No chest pain, palpitations, headache, flank pain. She has had some breathing issues and is on a course of steroids prescribed by
her PCP for 'inflammation of the lungs.'
Physical exam: Awake alert no distress. Vital signs normal.
Medical Decision Makin-year-old female presents after syncopal episode. Has had some recent breathing issues but no history of syncope in the past. Vitals and exam as above. EKG shows sinus rhythm. She had labs including a CBC and a CMP
which showed no clinically significant abnormalities. Her troponin is marginally elevated at 0.055. Her D-dimer was elevated and so she was sent for a CT chest which is pending. She is also pending CT head as she had a fall recently. Reassess
after the above.
CT head negative for any acute pathology. CT chest shows no PE. Will plan to admit for trending of troponins, monitor on telemetry. Discussed with hospitalist.
ED Attending Note
<Christelle Henry DO - Last Filed: 12/24/24 15:47>
-
Portions of this chart may have been created with voice recognition software.� Occasional wrong word or��sound alike� substitutions may have occurred due to the inherent limitations of voice recognition software.
Discharge Plan
Departure
Patient Disposition: Admit
Date of Disposition: 12/24/24
Time of Disposition: 18:11
Admit to doctor: Harsha
Presentation/result/management discussed w/ accepting MD/DO: Hospitalist
Discharge Problem:
Syncope, Elevated troponin
Prescriptions:
No Action
prednisone 10 mg Tablet
40 mg PO DIRECTED
Rx Instructions:
starting 11/26/24-take 40mg daily for 4 weeks then 30mg daily for 1 week then 20mg daily for 1 week then 10mg daily for 1 week
cyanocobalamin (vitamin B-12) 1,000 mcg Tablet
1,000 mcg PO DAILY
sulfamethoxazole-trimethoprim [Bactrim DS] 800-160 mg Tablet
1 tab PO MOWEFR
pantoprazole [Protonix] 40 mg Tablet,Delayed Release (Dr/Ec)
40 mg PO Q48H
vitamin K2 40 mcg Tablet
40 mcg PO DAILY
magnesium oxide 200 mg magnesium Tablet
200 mg PO DAILY
Referrals:
Katerin Denny PA-C [Family Provider]
Interventions
Interventions:
*Risk Screen - Suicide Last Done: 12/24/24 13:18
*General Assessment Last Done: 12/24/24 14:27
*Neglect/Abuse Screening Last Done: 12/24/24 13:18
*ED- Fall Risk Assessment Last Done: 12/24/24 14:27
*ED COVID-19 Vaccine History Last Done: 12/24/24 14:27
ED-Musculoskeletal Assessment Last Done: 12/24/24 14:31
ED- Neurological Assessment Last Done: 12/24/24 14:31
ED-Skin Assessment Last Done: 12/24/24 14:31
Discharge Date and Time
Print Language: [id number]
[2024-12-24 18:24] LABS: Troponin I 0.047 ng/ml
--- NOTE | 2024-12-24 18:29 | HPS.HSE ---
Family Physician
-
Family Physician: MOE Arrieta
Chief Complaint
-
syncope
History of Present Illness
64-year-old female past medical history of non-small cell lung cancer status post radiation/chemotherapy, COPD, cachexia presenting with syncopal episode. She states that she got up at 630 this morning and went up to go to the kitchen and started
feeling lightheaded with ringing in the ears, nausea, tunnel vision. She is not sure if she struck her head. She is not on any blood thinners. Denies headache or neck pain. Did not eat or drink anything this morning prior to syncopal episode.
She was rollerblading last evening and fell onto her butt. She has been having some lower back pain which is improved this morning. Denies weakness or numbness. Denies any chest pain or shortness of breath.
She has been eating and drinking well. Denies nausea vomiting or diarrhea. Her blood pressure normally runs low.
She was thought to have lung inflammation, presumably pneumonitis secondary to immunotherapy which was stopped a month ago and she was started on prednisone taper and Bactrim. She has been weaned down from 40 mg of prednisone. She is supposed to
start 10 mg tomorrow for a week. Bactrim finishes at the same time.
He is a former smoker. Denies alcohol use.
Medical History
Past Medical History
Past Medical History: Reports Other (non-small cell lung cancer status post radiation/chemotherapy, COPD, cachexia)
Past Surgical History: Reports None
Social History
Tobacco: Former Smoker
Alcohol: None
Drug: None
Family History
Family History: Not pertinent
Allergies / Home Medications
Allergies reflects when Allergies were last updated in [facility].
Home Medications with original date entered in [facility]
Allergy/Medication List:
Allergies
Allergy/AdvReac Type Severity Reaction Status Date / Time
fosaprepitant (From [facility] Allergy dizziness, Verified 07/25/24 11:18
(fosaprepitant)) shortness
of breath
pseudoephedrine (From Allergy Hives Verified 07/25/24 11:17
Sudafed)
Home Medications
cyanocobalamin (vitamin B-12) 1,000 mcg tablet 1,000 mcg PO DAILY 12/24/24
magnesium oxide 200 mg PO DAILY 12/24/24
pantoprazole 40 mg tablet,delayed release (Protonix) 40 mg PO Q48H 12/24/24
prednisone 10 mg tablet 40 mg PO DIRECTED 12/24/24
sulfamethoxazole 800 mg-trimethoprim 160 mg tablet (Bactrim DS) 1 tab PO MOWEFR 12/24/24
vitamin K2 40 mcg tablet 40 mcg PO DAILY 12/24/24
Review of Systems
-
History Source: Patient
A 12 point ROS was completed and negative except as noted: Yes
Constitutional: Reports No Symptoms
EENT: Reports No Symptoms
Respiratory: Reports No Symptoms
Cardiac: Reports No Symptoms
Abdomen/GI: Reports No Symptoms
: Reports No Symptoms
Musculoskeletal: Reports No Symptoms
Skin: Reports No Symptoms
Neurological: Reports No Symptoms
Endocrine: Reports No Symptoms
Hematologic/Lymphatic: Reports No Symptoms
Psych: Reports No Symptoms
Physical Exam
Vital Signs
Vital Signs
Temp Pulse Resp BP Pulse Ox
98.5 F 70 17 96/72 98
12/24/24 13:18 12/24/24 18:15 12/24/24 17:31 12/24/24 17:31 12/24/24 18:15
Physical Exam
General: Well Developed, Well Nourished and No Apparent Distress
HEENT: NormoCephalic, Moist mucous membranes and Atraumatic
Respiratory: Clear
Cardiac: S1/S2 and Regular Rhythm; No Murmur or Rub
GI: Soft, Non Tender, Non Distended and Normal Bowel Sounds; No Organomegaly
Rectal: Deferred by Provider
Musculoskeletal: No Clubbing, No Cyanosis and No Edema
Skin: No Rash
Neuro: Nonfocal/grossly intact
Laboratory Results
-
12/24/24 14:40
12/24/24 14:40
Laboratory Results
Total Bilirubin 1.0 mg/dl (0.2-1.3) 12/24/24 14:40
AST 24 U/L (14-36) 12/24/24 14:40
ALT 22 U/L (0-35) 12/24/24 14:40
Alkaline Phosphatase 80 U/L (38-126) 12/24/24 14:40
Troponin I 0.047 ng/ml H* 12/24/24 17:34
Data Reviewed
-
Lab Data: Labs Reviewed by me
Old Records: Reviewed
Impression/Plan
-
IMPRESSION:
PLAN:
# Syncopal episode likely secondary to orthostatic hypotension
-Blood pressure 90s
- Likely secondary to orthostatic hypotension
- EKG shows normal sinus rhythm
- Check orthostatic vital signs
- Telemetry monitoring
- Troponin of 0.055, trend troponins
- CT PE shows no evidence of pulmonary thromboembolism
- CT head shows no acute abnormality
- IV fluid bolus
- Consider midodrine if persistent symptoms
# Recent immunotherapy associated pneumonitis
- Continue prednisone taper, start 10 mg for a week tomorrow
- Continue Bactrim
Non-small cell lung cancer status post radiation/chemotherapy
COPD
Cachexia
Full code
DVT prophylaxis�heparin
Regular diet
[2024-12-24] MEDS: NSS 500 IV (18:37)
--- NOTE | 2024-12-24 21:30 | PTCARENOTE ---
Pt received from ED via stretcher. Ambulated to room independently, denies dizziness/lightheadedness. AAOx3, pleasant. Telemetry = SR . Oriented to surroundings and plan of care discussed. Assessment and admission completed. #20 LAC INT
patent. Instructed to ring when getting up for supervision, verbalizes understanding. Call lamberto w/in reach.
[2024-12-24] MEDS: HEPARIN 5000 UNITS SC (21:32)
[2024-12-25 03:22] VITALS: BP 96/61
[2024-12-25 03:28] LABS: % Basophils 0.2 % (0-2); % Eosinophils 1.2 % (0-6); % Immature Granulocytes 0.7 % (0-0.5); % Lymphocytes 14.3 % (20.5-51.1); % Monocytes 11.4 % (1.7-9.3); % Neutrophils 72.2 % (42.2-75.2); Absolute Eosinophils 0.1 10^3/uL (0-0.7); Absolute Lymphocytes 0.6 10^3/uL (1.2-3.4); Absolute Monocytes 0.5 10^3/uL (0.1-0.6); Absolute Neutrophils 2.9 10^3/uL (1.4-6.5); Hematocrit 37.8 % (37.0-47.0); Hemoglobin 12.4 g/dL (12.0-16.0); Mean Corp Hgb Conc. 32.8 g/dL (33.0-37.0); Mean Corpuscular Hgb 29.4 pg (27.0-31.0); Mean Corpuscular Volume 89.6 fL (81.0-99.0); Mean Platelet Volume 9.9 fL (7.4-10.4); Nucleated Red Blood Cells % 0 %; Platelet Count 157 10^3/uL (130-400); Red Blood Cell Count 4.22 10^6/uL (4.20-5.40); Red Cell Dist. Width 13.7 % (11.5-14.5); White Blood Cell Count 4.1 10^3/uL (4.8-10.8)
[2024-12-25 03:47] LABS: ALT (SGPT) 19 U/L (0-35); AST (SGOT) 21 U/L (14-36); Alkaline Phosphatase 72 U/L (38-126); Blood Urea Nitrogen 15 mg/dl (7-17); Calcium 9.7 mg/dl (8.4-10.2); Carbon Dioxide 26 mmol/L (22-30); Chloride 108 mmol/L (98-107); Estimated Creatinine Clearance 61 ml/min; Glucose 93 mg/dl (70-99); Sodium 138 mmol/L (135-145); Total Bilirubin 0.9 mg/dl (0.2-1.3); Total Protein 6.4 g/dl (6.3-8.2); eGFR > 60.00
[2024-12-25 03:58] LABS: Troponin I 0.036 ng/ml
[2024-12-25 07:20] VITALS: BP 111/54; BP 94/49; BP 96/62; PULSE 69; PULSE 77; PULSE 91
[2024-12-25] MEDS: MAG-TAB SR 84 MG PO (08:42)
[2024-12-25] MEDS: VITAMIN B-12 1000 MCG PO (08:42)
[2024-12-25] MEDS: HEPARIN SC (08:43)
[2024-12-25] MEDS: BACTRIM DS 800 MG/160 MG 1 TABLET PO (08:45)
--- NOTE | 2024-12-25 08:46 | W.PN.HOSP.TC ---
Today's Communication/Plan
-
discharge
Assessment / Plan
Assessment / Plan
Physical Exam
General: no acute distress, appears comfortable at this time. Skinny appearance
HEENT: NormoCephalic, Moist mucous membranes, and Atraumatic
Respiratory: Clear
Cardiac: S1/S2 and Regular Rhythm; No Murmur or Rub
GI: Soft, Non Tender, Non Distended and Normal Bowel Sounds; No Organomegaly
Musculoskeletal: No Clubbing, No Cyanosis and No Edema
Skin: No Rash
Neuro: Aox3 conversant coherent
64F non small cell cancer s/p rad/chemo COPD here for evaluation syncope since resolved, patient since asymptomatic ambulating without issues or need for assist device. Eager to go home. Patient does endorse some excess physical activity,
including rollerblading, night prior to her event in the morning.
# Syncopal episode likely vasovagal
#Nonischemic myocardial injury
- BP stable
- Orthostatic vitals neg for hypotension
- EKG shows normal sinus rhythm
- Telemetry monitoring
- Troponin peaked 0.055 since trended down, consistently chest pain free, denies chest pain prior to admission, discussed with patient agreeable to outpt Cardio eval, referral to be provided on discharge.
- CT PE shows no evidence of pulmonary thromboembolism
- CT head shows no acute abnormality
# Recent immunotherapy associated pneumonitis
- Continue prednisone taper, start 10 mg for a week tomorrow
- Continue Bactrim
Non-small cell lung cancer status post radiation/chemotherapy
COPD
Full code
DVT prophylaxis�heparin
Regular diet
Medically stable for discharge home with outpatient follow up recommendations.
Total Time Preparing Discharge __40 minutes including examination of the patient, summary of the hospital stay, instructions for continuing care to all relevant caregivers; and preparation of discharge records, prescriptions, and referral
forms if necessary.
Anticipated Discharge: Today
Subjective/Interval History
-
Date of Service: December 25, 2024
reports feeling well. Ambulating without issues or need for assist device. Denies new acute issues. Eager to go home. Denies lightheadedness dizziness shortness of breath chest pain palpitations
Objective Data
-
Labs:
Laboratory Results
12/25/24
03:12
WBC 4.1 L
Hgb 12.4
Hct 37.8
Plt Count 157
Sodium 138
Potassium 4.0
Chloride 108 H
Carbon Dioxide 26
BUN 15
Creatinine 0.6
Glucose 93
Calcium 9.7
Total Bilirubin 0.9
AST 21
ALT 19
Alkaline Phosphatase 72
Vital Signs:
Vital Signs
Temp Pulse Resp BP Pulse Ox
98.2 F 69 18 94/49 97
12/25/24 07:20 12/25/24 07:20 12/25/24 07:20 12/25/24 07:20 12/25/24 08:39
I&O
12/24/24 12/25/24 12/26/24
06:59 06:59 06:59
Intake Total 480 / 480
Balance 480 / 480
[2024-12-25] MEDS: TYLENOL 650 MG PO (08:54)
[2024-12-25] MEDS: DELTASONE 10 MG PO (08:55)
[2024-12-25 11:10] VITALS: BP 126/97
--- NOTE | 2024-12-25 11:41 | CM ---
Alert awake oriented patient who lives alone in a 1 story home with 0 step to enter.She is independent in driving and in all activities of daily living.Offered VN she declined need.Her dgt Sharon will drive her home. She agrees with discharge. ASHRAF
Observation letter given explained. Copy signed on chart.
No VN hx / No SNF history
Ph[facility]acy [facility]
PCP DR Katerin Denny
PLAN Home Declined VN
--- NOTE | 2024-12-25 12:20 | W.DCSUMMARY ---
Discharge Summary
Discharge Data
Date of Admission: 12/24/24
Date of Discharge: 12/25/24
-
Pending Results: No
Discharge Plan
-
Patient Disposition: Home (Routine Discharge)
Discharge Diagnosis/Procedures: Vasovagal Syncope
Troponin elevation (0.055 since trended down) likely Nonischemic Myocardial Injury (chest pain free)
Condition: Fair
Diet: Regular
Activity: As tolerated
Driving Restrictions: As prior to admission
Bathing Restrictions: None
Activity Restrictions/Additional Instructions:
Please follow up with your primary care provider in 1 week of discharge, keep your appointment with Oncology, and follow up with Cardiology in 2 weeks of discharge.
Instructions: Syncope (fainting) - Discharge instructions
Referrals:
Katerin Denny PA-C [Family Provider] - in one week
Lindsey Douglas MD [Active, Cardiology] - in two weeks
Prescriptions:
Continued
cyanocobalamin (vitamin B-12) 1,000 mcg Tablet
1,000 mcg PO DAILY
sulfamethoxazole-trimethoprim [Bactrim DS] 800-160 mg Tablet
1 tab PO MOWEFR
pantoprazole [Protonix] 40 mg Tablet,Delayed Release (Dr/Ec)
40 mg PO Q48H
vitamin K2 40 mcg Tablet
40 mcg PO DAILY
magnesium oxide 200 mg magnesium Tablet
200 mg PO DAILY
prednisone 10 mg Tablet
10 mg PO DAILY
Discharge Orders:
Discharge Patient (As Directed); Ordered 12/25/24
Ordered By: Doris Samuels
Discharge Date and Time
Print Language: BELARUSIAN
== END 2024-12-25 13:58 | disposition home or self-care (01) ==
LOC: 4 EAST ACU 19:33
PROVIDERS: ADMITTING PHYSICIAN Hospitalist; ATTENDING PHYSICIAN Internal Medicine; EMERGENCY PHYSICIAN Student in an Organized Health Care Education/Training Program; FAMILY PHYSICIAN Physician Assistant
DX: R55 Syncope and collapse (principal); Z85.118 Personal history of other malignant neoplasm of bronchus and lung; Z87.891 Personal history of nicotine dependence; I95.1 Orthostatic hypotension; Z79.52 Long term (current) use of systemic steroids; J44.9 Chronic obstructive pulmonary disease, unspecified; R64 Cachexia; Z68.1 Body mass index [BMI] 19.9 or less, adult; I5A Non-ischemic myocardial injury (non-traumatic); C34.90 Malignant neoplasm of unspecified part of unspecified bronchus or lung; Z92.3 Personal history of irradiation; Z92.21 Personal history of antineoplastic chemotherapy
CPT/HCPCS: 70450; 71275; 80053; 81003; 81015; 84484; 85025; 85379; 93005; 96360; 99285; G0378; Q9967

== ENCOUNTER 2025-01-02 00:14 | Emergency (ER) | payer MEDICARE, SELFPAY ==
[2025-01-02 00:25] VITALS: BP 155/90
[2025-01-02 01:14] LABS: % Basophils 0.3 % (0-2); % Eosinophils 0.9 % (0-6); % Immature Granulocytes 0.6 % (0-0.5); % Lymphocytes 19.4 % (20.5-51.1); % Monocytes 13.2 % (1.7-9.3); % Neutrophils 65.6 % (42.2-75.2); Absolute Lymphocytes 0.7 10^3/uL (1.2-3.4); Absolute Monocytes 0.5 10^3/uL (0.1-0.6); Absolute Neutrophils 2.2 10^3/uL (1.4-6.5); Hematocrit 41.4 % (37.0-47.0); Hemoglobin 13.7 g/dL (12.0-16.0); Mean Corp Hgb Conc. 33.1 g/dL (33.0-37.0); Mean Corpuscular Hgb 29.3 pg (27.0-31.0); Mean Corpuscular Volume 88.5 fL (81.0-99.0); Mean Platelet Volume 9.2 fL (7.4-10.4); Nucleated Red Blood Cells % 0 %; Platelet Count 215 10^3/uL (130-400); Red Blood Cell Count 4.68 10^6/uL (4.20-5.40); White Blood Cell Count 3.4 10^3/uL (4.8-10.8)
[2025-01-02 01:24] LABS: ALT (SGPT) 18 U/L (0-35); AST (SGOT) 32 U/L (14-36); Albumin 4.8 g/dl (3.5-5.0); Alkaline Phosphatase 84 U/L (38-126); Blood Urea Nitrogen 20 mg/dl (7-17); Calcium 9.9 mg/dl (8.4-10.2); Carbon Dioxide 25 mmol/L (22-30); Chloride 109 mmol/L (98-107); Glucose 100 mg/dl (70-99); Sodium 142 mmol/L (135-145); Total Bilirubin 0.7 mg/dl (0.2-1.3); Total Protein 7.6 g/dl (6.3-8.2); eGFR > 60.00
[2025-01-02 01:34] LABS: NT-proBNP 196 pg/ml; Troponin I < 0.012 ng/ml
[2025-01-02 02:36] VITALS: BMI 16.3
--- NOTE | 2025-01-02 03:04 | ED.GENMED ---
History of Present Illness
General
Chief Complaint: Heart Rate Problem
Source: patient
Time Seen by Provider: 01/02/25 02:24
History of Present Illness
History of Present Illness:
Note:
CHIEF COMPLAINT(S)
Heart palpitations with irregular heart rhythm.
HISTORY OF PRESENT ILLNESS
The patient is a 64-year-old female with a history of lung cancer metastasized to the adrenal gland. Her chief complaint was the sudden onset of heart palpitations and racing heart, which began after a fall while roller skating on a Saturday night
approximately 10 days ago. The patient experienced an episode where her heart was pounding for nearly two hours post-fall, and she fainted the following morning after feeling nauseous and noticing ringing in her ears. These symptoms recurred last
night, accompanied by a heart rate reaching 160 beats per minute as measured by her daughters watch during a datapine game. These episodes of palpitations and tachycardia lasted for about two hours. The patient reports that since
coming to the medical facility, her heart rate has varied between 120 to 160 beats per minute.
The patient also notes a history of hospitalization for cancer treatment-related complications, including episodes requiring blood transfusions due to low blood cell counts. She reports starting her cancer medication, Tagrisso, with previous side
effects including hospitalizations but does not specifically attribute her current symptoms to this medication.
The patient was admitted on the current visit due to awakening with palpitations at midnight and is being assessed for atrial fibrillation, which has not been diagnosed previously. She has not had any high blood pressure, diabetes, or other common
cardiac risk factors. However, she has been informed of having high cholesterol.
ADDITIONAL HISTORY OBTAINED FROM SOURCES OTHER THAN THE PATIENT
According to the patient�s daughter, who is a nurse, the patient�s heart rate was 160 beats per minute during an episode at a family event.
CHRONIC MEDICAL CONDITIONS SIGNIFICANTLY AFFECTING CARE
- Lung cancer with metastasis to the adrenal gland.
- History of high cholesterol.
MEDICATIONS
- Tagrisso for lung cancer.
- Recently completed a course of steroids.
REVIEW OF SYSTEMS
- Cardiovascular: Heart palpitations, racing heart rate.
- Neurological: Episode of loss of consciousness, ringing in ears before fainting.
- Musculoskeletal: Limping post-fall due to injury.
PHYSICAL EXAM
- Cardiovascular: Irregularly irregular heart rhythm, tachycardia.
- Neurological: Non-focal neurologic assessment, cranial nerves normal to assessment. The patient is awake, alert, and oriented.
- Abdomen: Non-distended.
- Lower extremities: No swelling.
- Skin: Dry.
PLAN
- Conduct laboratory tests to check electrolytes and blood counts.
- Implement rate control to slow the heart rate down and attempt to restore normal rhythm.
- Monitor for potential thrombotic risks and manage accordingly.
- Consider hospitalization for overnight monitoring due to persistent atrial fibrillation symptoms.
DIFFERENTIAL DIAGNOSIS
The Differential Diagnosis includes, in no particular order and is not limited to:
- Atrial fibrillation
- Supraventricular tachycardia
- Medication side effects (e.g., from Tagrisso or recent steroids)
- Electrolyte imbalance
- Postural hypotension
- Myocardial ischemia
- Hyperthyroidism
- Anxiety/panic attacks
- Structural cardiac abnormalities
- Acute myocardial infarction
CARE-UPDATE
01/02/25 - 02:45
EKG indicates atrial fibrillation with a rapid ventricular rate and ischemic changes. No axis deviation noted.
CARE-UPDATE
01/02/25 - 04:16
The patient has converted back to normal sinus rhythm; however, their heart rate remains on the higher end. A recommendation was made to initiate diltiazem to control the heart rate and maintain rhythm to prevent recurrence of AFib. The patient will
also be started on a blood thinner, apixaban, to reduce the risk of stroke due to potential clot formation during AFib episodes. It was advised that these medications continue at least until the scheduled cardiology consultation next week, where
long-term management and the possibility of discontinuing the blood thinner will be discussed. The patient expressed sensitivity to medications, recalling previous experiences of systemic sensations related to steroid use. They agreed to take their
first doses and will discuss further with a family member for reassurance.
EKG
My independent EKG interpretation is:
- Rhythm: Atrial fibrillation
- Heart Rate: Tachycardia
- [place]: Normal
- Notable Abnormalities: No ischemic changes noted
Disposition:
DIAGNOSIS
- Atrial fibrillation with rapid ventricular rate (ICD-10: I48.0)
SUMMARY OF ENCOUNTER
The patient is a 64-year-old female with a history of lung cancer, who was recently on steroids, presenting with atrial fibrillation with rapid ventricular response. She initially came to the emergency department with palpitations and was found to
be in atrial fibrillation with a rapid ventricular rate. The patient spontaneously converted back to sinus rhythm without intervention. Laboratory results were reassuring with normal hemoglobin and unremarkable chemistry.
ASSESSMENT
The patients atrial fibrillation was likely influenced by recent steroid use and her current health status due to history of lung cancer.
PLAN
Initiate rate control with diltiazem to maintain sinus rhythm and begin apixaban (Eliquis) for stroke prophylaxis. The patient was informed about the benefits and risks of these medications. A follow-up with cardiology is already arranged for this
week.
INDEPENDENT INTERPRETATION OF TESTS
My independent interpretation of the lab results shows normal hemoglobin levels and unremarkable chemistry.
PATIENT EDUCATION AND COUNSELING
The patient was counseled on the risks and benefits of starting diltiazem and apixaban for her atrial fibrillation and potential risk for stroke.
FOLLOW-UP INSTRUCTIONS
The patient is instructed to attend her cardiology appointment scheduled for this week.
MEDICATION RECONCILIATION
Initiation of diltiazem for rate control and apixaban (Eliquis) for anticoagulation.
MEDICAL DECISION MAKING
The patient�s primary issue of atrial fibrillation was addressed with consideration for her use of steroids and cancer history. The decision to initiate anticoagulation therapy and rate control medications was made in light of the potential for
thrombotic events in atrial fibrillation. Regular cardiology follow-up is planned to further manage her condition.
Considered admission but now the patient has remained in normal sinus rhythm hold off
Past History
Past History
ED Past Medical History: Cancer (Lung cancer)
ED Past Surgical History: None
Social History
Tobacco: Non-smoker
Personal:
Living: with family
Employment: Employed
Phy Exam
Physical Exam
Physical Exam:
.
Course
Orders/Labs/Results
Orders:
Orders
01/02/25 00:19
Electrocardiogram (*1) Urgent
Reason for Study: Other
Other Reason for Exam: Respiratory Distress
Cardiac Monitoring- Treatment ONCE
EKG- Treatment ONCE
IV Insert/Care/Rem.- Treatment PRN
CR Chest - 2 Views Urgent
Comment:
Reason For Exam: respiratory distress
O2 Therapy [RESP] Urgent
Titrate/Wean O2 to maintain O2 sat greater than (%): 93
Special Instructions: TO MAINTAIN CONTINUOUS O2 SATS >/= 93%
Pulse Ox/cont/shift [RESP] Urgent
Quantity: 1
Special Instructions: continuous pulse ox
01/02/25 01:02
Complete Blood Count/With Diff Urgent
Comprehensive Metabolic Panel Urgent
NT-proBNP Urgent
Troponin I Urgent
01/02/25 03:03
Diltiazem 125 mg/125 ml Nss [Cardizem] 125 mg in 125 ml IV NOW
Initial dose in mg/hr, then titrate:: 10
Titrate to keep:: Heart rate 80-100 bpm
Titrate by mg/hr:: 5 mg/hr
Frequency of titrations (minutes):: 15
Maximum dose in mg/hr:: 15
Diltiazem HCl [Cardizem] 10 mg IV NOW STA
01/02/25 03:28
EKG [Electrocardiogram (*1)] Urgent
Reason for Study: Tachycardia
01/02/25 03:29
EKG- Treatment ONCE
01/02/25 03:36
Diltiazem Extended Release [Cardizem Cd] 120 mg PO NOW STA
01/02/25 04:29
Apixaban [Eliquis] 5 mg PO NOW STA
Abnormal Lab Results
01/02/25
01:02
WBC 3.4 L 10^3/uL
(4.8-10.8)
Absolute Lymphs (auto) 0.7 L 10^3/uL
(1.2-3.4)
Immature Gran % 0.6 H %
(0-0.5)
Lymphocytes % 19.4 L %
(20.5-51.1)
Monocytes % 13.2 H %
(1.7-9.3)
Chloride 109 H mmol/L
(98-107)
BUN 20 H mg/dl
(7-17)
Glucose 100 H mg/dl
(70-99)
01/02/25 01:02
01/02/25 01:02
Vital Signs
Initial and Last Documented VS:
Initial Vital Signs
Temp Pulse Resp BP Pulse Ox
97.8 F 126 20 155/90 99
01/02/25 00:25 01/02/25 00:25 01/02/25 00:25 01/02/25 00:25 01/02/25 00:25
Last Documented Vital Signs
Temp Pulse Resp BP Pulse Ox
97.8 F 82 20 122/90 97
01/02/25 00:25 01/02/25 04:26 01/02/25 00:25 01/02/25 04:26 01/02/25 02:41
*Pulse Oximetry
Patient hypoxic: no
*Critical Care Note
Total Time (30-74mins, 75-104mins- exclusive of procedures): 30 minutes
ED Attending Note
-
Portions of this chart may have been created with voice recognition software.� Occasional wrong word or��sound alike� substitutions may have occurred due to the inherent limitations of voice recognition software.
Discharge Plan
Departure
Patient Disposition: Home (Routine Discharge)
Date of Disposition: 01/02/25
Time of Disposition: 04:32
Patient with high blood pressure during this ER visit?: No
Discharge Problem:
Atrial fibrillation with rapid ventricular response
Instructions: Atrial Fibrillation (DC)
Prescriptions:
New
diltiazem HCl [Cartia XT] 120 mg capsule,extended release 24hr
120 mg PO DAILY Qty: 30 0RF
Eliquis 5 mg tablet
5 mg PO BID Qty: 60 0RF
No Action
cyanocobalamin (vitamin B-12) 1,000 mcg Tablet
1,000 mcg PO DAILY
vitamin K2 40 mcg Tablet
40 mcg PO DAILY
magnesium oxide 200 mg magnesium Tablet
200 mg PO DAILY
Tagrisso 40 mg Tablet
40 mg PO DAILY
Rx Instructions:
for cancer
Referrals:
VIDHYA COTTER [Other]
Activity Restrictions/Additional Instructions:
Please see cardiology in follow-up in the next 3 to 5 days. Return immediately for chest pain, shortness of breath, palpitations, passing out episode, or any other concerns.
Interventions
Interventions:
*Risk Screen - Suicide Last Done: 01/02/25 02:41
*General Assessment Last Done: 01/02/25 00:25
*Neglect/Abuse Screening Last Done: 01/02/25 00:25
*ED- Fall Risk Assessment Last Done: 01/02/25 00:25
*ED COVID-19 Vaccine History Last Done: 01/02/25 00:25
ED- Cardiac Assessment Last Done: 01/02/25 02:41
ED- Pulmonary Assessment Last Done: 01/02/25 02:41
Discharge Date and Time
Print Language: SAMI
[2025-01-02] MEDS: CARDIZEM CD 120 MG PO (04:26)
[2025-01-02] MEDS: ELIQUIS 5 MG PO (04:54)
[2025-01-02 05:25] VITALS: BP 111/77
== END 2025-01-02 05:25 | disposition home or self-care (01) ==
LOC: EMR 00:14
PROVIDERS: EMERGENCY PHYSICIAN Emergency Medicine
DX: I48.91 Unspecified atrial fibrillation (principal); C34.90 Malignant neoplasm of unspecified part of unspecified bronchus or lung; C79.70 Secondary malignant neoplasm of unspecified adrenal gland; E78.00 Pure hypercholesterolemia, unspecified; Z91.81 History of falling; Z88.8 Allergy status to other drugs, medicaments and biological substances
CPT/HCPCS: 99291; 71046; 80053; 83880; 84484; 85025; 93005

== ENCOUNTER → 2025-01-18 15:41 | Outpatient (REF) | payer MEDICARE, SELFPAY | LOC: HWRCS 15:41 | PROVIDERS: ATTENDING PHYSICIAN Internal Medicine Cardiovascular Disease | DX: I48.0 Paroxysmal atrial fibrillation (principal); I48.92 Unspecified atrial flutter; R55 Syncope and collapse | CPT/HCPCS: 93306 ==